=== PATIENT | male | born 1940 | race Caucasian/White ===

== ENCOUNTER → 2017-01-23 | Outpatient (CLI) | payer MEDICARE, BC ==
--- NOTE | 2017-01-23 13:36 | CARD ---
APPROVED REPORT EXAM: Two-dimensional and M-mode echocardiogram with Doppler and color Doppler. Other Information Quality : GoodHR: 76bpm Rhythm : NSR INDICATION Cardiomyopathy Surgery/Intervention COPD RISK FACTORS Obesity 2D DIMENSIONS RVDd2.3 (2.9-3.5cm)Left Atrium(2D)5.4 (1.6-4.0cm) IVSd1.4 (0.7-1.1cm)Aortic Root(2D)3.5 (2.0-3.7cm) LVDd5.5 (3.9-5.9cm)PWd0.1 (0.7-1.1cm) LVDs4.1 (2.5-4.0cm)FS (%) 24.9 % SV72.3 mlLVEF(%)48.7 (>50%) Aortic Valve AoV Peak Bryan.166.9cm/sAoV VTI37.9cm AO Peak GR.11.1mmHgLVOT Peak Bryan.118.8cm/s AO Mean GR.6mmHgAI P 1/2 [id number] Mitral Valve MV E Miiuvtlm28.9cm/sMV E Peak Gr.4mmHg MV DECEL [id number] A Ccpaekda13.4cm/s MV E Mean Gr.2mmHgE/A Ratio1.3 MV A [id number] Pulmonary Valve PV Peak Pehvpjai65.7cm/s Tricuspid Valve TR P. Mkaxbctv271lv/sTR Peak Gr.32mmHg Pulmonary Vein S1 Rjoxaaug61.2cm/sD2 Vydvookj86.3cm/s PVa [id number] LEFT VENTRICLE The left ventricle is normal size. There is mild concentric left ventricular hypertrophy. Left ventri johnny systolic function is borderline normal. The Ejection Fraction is 50%. Septal motion consistent wi th post-operative state. Transmitral Doppler flow pattern is Grade II-pseudonormal filling dynamics. No left ventricle thrombus noted on this study. RIGHT VENTRICLE The right ventricle is normal size. There is normal right ventricular wall thickness. The right ventr icular systolic function is normal. ATRIA The left atrium size is normal. The right atrium size is normal. The interatrial septum is intact wit h no evidence for an atrial septal defect or patent foramen ovale as noted on 2-D or Doppler imaging. AORTIC VALVE The aortic valve is mildly sclerotic. The aortic valve is trileaflet. Doppler and Color Flow revealed mild aortic regurgitation. There is no significant aortic valvular stenosis. MITRAL VALVE Mitral annular calcification is mild. The mitral valve leaflets are thickened. There is no evidence o f mitral valve prolapse. There is no mitral valve stenosis. Doppler and Color Flow revealed trace dm ral regurgitation. TRICUSPID VALVE Doppler and Color Flow revealed trace tricuspid regurgitation. The pulmonary artery systolic pressure is estimated at 35 mmHg. There is mild pulmonary hypertension. PULMONIC VALVE Doppler and Color Flow revealed trace pulmonic valvular regurgitation. There is no pulmonic valvular stenosis. GREAT VESSELS The aortic root is normal in size. The ascending aorta is normal in size. The pulmonary artery is nor mal. The IVC is normal in size and collapses >50% with inspiration. PERICARDIAL EFFUSION There is a small-moderate loculated posterior pericardial effusion without evidence of hemodynamic co mpromise. Critical Notification Critical Value: No <Conclusion> Left ventricle systolic function is borderline normal. The Ejection Fraction is 50%. Mild aortic regurgitation. Trace mitral regurgitation. Trace tricuspid regurgitation. The pulmonary artery systolic pressure is estimated at 35 mmHg. There is a small-moderate loculated posterior pericardial effusion.
--- NOTE | 2017-01-23 17:16 | RAD ---
APPROVED REPORT Patient Location : OUT-PATIENT Indications Lower Extremity Pain : Bilateral Lower Extremity Edema : Bilateral CARDIOMYOPATHY Deep System Deep Venous Thrombosis present : No Deep Venous Reflux present : No Findings Sylvester scale images of the saphenofemoral junctions and limited evaluation of the greater and lesser sa phenous veins do not reveal any evidence of thrombus. The right great saphenous vein measures approximately 3.6 mm and has a reflux time of approximately 1 .5 seconds. The right lesser saphenous vein measures approximately 2.9 m and does not show any eviden ce of reflux. The left great saphenous vein measures approximately 3.2 mm and has a reflux time approximately 1.5 s econds. The left lesser saphenous vein measures 4.1 mm and does not show any evidence of reflux. Critical Notification Critical Value: No <Conclusion> 1. Mild reflux in the bilateral greater saphenous veins.
--- NOTE | 2017-01-23 17:23 | RAD ---
APPROVED REPORT Bilateral Lower Extremity Venous Study for DVT Patient Location: OUT-PATIENT Indications Lower Extremity Pain: Bilateral Lower Extremity Edema: Bilateral CARDIOMYOPATHY Findings Sylvester scale images of the right and left deep venous system extending from the common femoral vein to the ankle level was performed. On the right the common femoral, superficial femoral and popliteal vessels are well visualized and ap pear to be fully compressible with normal spectral waveforms and color Doppler. The below-knee veins were not well visualized but appear to have spontaneous flow. On the left the common femoral vein and proximal superficial vein appear to be compressible and well visualized. The distal superficial femoral vein and popliteal veins were not adequately visualized bu t grossly appear to be compressible with normal spectral waveforms and color Doppler throughout the l eg including the below-knee vessels. Incidental finding of a right-sided Sams's cyst is noted measuring 4.8 x 2 x 3.67 cm. Critical Notification Critical Value: No <Conclusion> 1. No evidence of DVT in the bilateral lower extremities. 2. Itself finding of a right-sided Sams's cyst in the popliteal fossa measuring 4.8 x 2.0 x 3.6 cm
== END | disposition home or self-care (01) ==
LOC: US 06:58
PROVIDERS: ATTEND Internal Medicine Cardiovascular Disease
DX: I08.3 Combined rheumatic disorders of mitral, aortic and tricuspid valves (principal); I42.9 Cardiomyopathy, unspecified; M79.605 Pain in left leg; M79.604 Pain in right leg; R60.0 Localized edema
CPT/HCPCS: 93306; 93970

== ENCOUNTER → 2017-12-11 | Outpatient (CLI) | payer MEDICARE, BC | END | disposition home or self-care (01) | LOC: ECHO 12:53 | DX: Z01.818 Encounter for other preprocedural examination (principal); I35.1 Nonrheumatic aortic (valve) insufficiency; I51.7 Cardiomegaly | CPT/HCPCS: 93306 ==

== ENCOUNTER → 2018-01-27 | Outpatient (CLI) | payer MEDICARE, BC | END | disposition home or self-care (01) | LOC: KCIC MRI 10:15 | DX: M75.21 Bicipital tendinitis, right shoulder (principal); M19.011 Primary osteoarthritis, right shoulder; M25.411 Effusion, right shoulder | CPT/HCPCS: 73221 ==

== ENCOUNTER → 2018-03-18 | Outpatient (CLI) | payer MEDICARE, BC ==
[2018-03-18 14:42] LABS: ALBUMIN 3.6 g/dL (3.4-5.0); ALK PHOS 46 U/L (46-116); ALT (SGPT) 34 U/L (16-63); ANION GAP 10 (6-14); AST (SGOT) 22 U/L (15-37); BLOOD UREA NITROGEN 21 mg/dL (8-26); BUN/CREATININE RATIO 16 (6-20); CALCIUM 9.1 mg/dL (8.5-10.1); CARBON DIOXIDE 26 mmol/L (21-32); CHLORIDE 104 mmol/L (98-107); CREATININE 1.3 mg/dL (0.7-1.3); GFR 53.8; GLUCOSE 99 mg/dL (70-99); SODIUM 140 mmol/L (136-145); TOTAL BILIRUBIN 0.9 mg/dL (0.2-1.0); TOTAL PROTEIN 7.2 g/dL (6.4-8.2)
== END | disposition home or self-care (01) ==
LOC: LAB 14:04
DX: I87.2 Venous insufficiency (chronic) (peripheral) (principal)
CPT/HCPCS: 36415; 80053

== ENCOUNTER → 2018-04-30 | Outpatient (CLI) | payer MEDICARE, BC ==
[2018-04-30 11:04] LABS: ADD MAN DIFF? NO
[2018-04-30 11:13] LABS: BASO % 1 % (0-3); EOS # 0.1 x10^3/uL (0.0-0.7); EOS % 2 % (0-3); HEMATOCRIT 39.2 % (39.0-53.0); HEMOGLOBIN 13.4 g/dL (13.0-17.5); LYMPH # 1.2 x10^3/uL (1.0-4.8); LYMPH % 22 % (24-48); MEAN CORPUSCULAR HEMOGLOBIN 34 pg (25-35); MEAN CORPUSCULAR HGB CONC 34 g/dL (31-37); MEAN CORPUSCULAR VOLUME 99 fL (79-100); MONO # 0.6 x10^3/uL (0.0-1.1); MONO % 11 % (0-9); NEUT # 3.7 x10^3uL (1.8-7.7); NEUT % 65 % (31-73); PLATELET COUNT 126 x10^3/uL (140-400); RED BLOOD COUNT 3.94 x10^6/uL (4.30-5.70); RED CELL DISTRIBUTION WIDTH 13.9 % (11.5-14.5); WHITE BLOOD COUNT 5.7 x10^3/uL (4.0-11.0)
[2018-04-30 11:41] LABS: ALBUMIN 3.4 g/dL (3.4-5.0); ALBUMIN/GLOBULIN RATIO 0.9 (1.0-1.7); ALK PHOS 65 U/L (46-116); ALT (SGPT) 24 U/L (16-63); ANION GAP 11 (6-14); AST (SGOT) 20 U/L (15-37); BLOOD UREA NITROGEN 16 mg/dL (8-26); BUN/CREATININE RATIO 12 (6-20); CALCIUM 9.2 mg/dL (8.5-10.1); CARBON DIOXIDE 24 mmol/L (21-32); CHLORIDE 101 mmol/L (98-107); CREATININE 1.3 mg/dL (0.7-1.3); GFR 53.8; GLUCOSE 102 mg/dL (70-99); POTASSIUM 3.4 mmol/L (3.5-5.1); SODIUM 136 mmol/L (136-145); TOTAL BILIRUBIN 1.1 mg/dL (0.2-1.0); TOTAL PROTEIN 7.2 g/dL (6.4-8.2)
[2018-05-01 01:17] LABS: IMMUNOGLOBULIN G 1064 mg/dL (700-1600)
[2018-05-01 15:32] LABS: KAPPA LAMBDA RATIO 4.07 (0.26-1.65); LAMBDA FREE 24.8 mg/L (5.7-26.3)
[2018-05-02 18:14] LABS: IMMUNOGLOBULIN A 270 mg/dL (61-437); IMMUNOGLOBULIN G 1082 mg/dL (700-1600); IMMUNOGLOBULIN M 49 mg/dL (15-143)
== END | disposition home or self-care (01) ==
LOC: LAB 10:24
DX: D47.2 Monoclonal gammopathy (principal); I10 Essential (primary) hypertension; E78.5 Hyperlipidemia, unspecified; E03.9 Hypothyroidism, unspecified; J44.9 Chronic obstructive pulmonary disease, unspecified
CPT/HCPCS: 36415; 80053; 82784; 83520; 85025; 86334

== ENCOUNTER → 2018-04-30 | Outpatient (CLI) | payer MEDICARE, BC ==
[2018-04-30 11:35] LABS: ANION GAP 10 (6-14); BLOOD UREA NITROGEN 16 mg/dL (8-26); CALCIUM 9.1 mg/dL (8.5-10.1); CARBON DIOXIDE 26 mmol/L (21-32); CHLORIDE 101 mmol/L (98-107); CREATININE 1.3 mg/dL (0.7-1.3); GFR 53.8; GLUCOSE 101 mg/dL (70-99); POTASSIUM 3.5 mmol/L (3.5-5.1); SODIUM 137 mmol/L (136-145)
[2018-04-30 11:56] LABS: THYROID STIM HORMONE (TSH) 3.561 uIU/mL (0.358-3.74)
[2018-04-30 11:56] LABS: FREE T4 0.92 ng/dL (0.76-1.46)
[2018-05-02 19:17] LABS: ANA INTERP Negative (.)
== END | disposition home or self-care (01) ==
LOC: LAB 10:04
DX: R60.9 Edema, unspecified (principal); I11.0 Hypertensive heart disease with heart failure; I50.9 Heart failure, unspecified; E78.00 Pure hypercholesterolemia, unspecified; E03.9 Hypothyroidism, unspecified; J44.9 Chronic obstructive pulmonary disease, unspecified; E87.6 Hypokalemia; I48.0 Paroxysmal atrial fibrillation; I25.10 Atherosclerotic heart disease of native coronary artery without angina pectoris; Z95.1 Presence of aortocoronary bypass graft; Z85.51 Personal history of malignant neoplasm of bladder; Z90.49 Acquired absence of other specified parts of digestive tract; Z88.8 Allergy status to other drugs, medicaments and biological substances; Z68.39 Body mass index [BMI] 39.0-39.9, adult
CPT/HCPCS: 36415; 80048; 84439; 84443; 86038; 86431

== ENCOUNTER → 2018-05-08 | Outpatient (CLI) | payer MEDICARE, BC ==
[2018-04-10 11:00] VITALS: BP 103/64
[~2018-05-08] MED LIST: ACET1TAB30 PO; APIX5TAB PO; ASPI-630 PO; BUDE10.2 INH; CARV3.122 PO; CELE-20 PO; DICL100G28 TOP; DICL1PAT14 TOP; DOXY100T PO; FLUT16SP NS; FURO40TA4 PO; GUAI12003 PO; HYDR-2762 PO; HYDR28.311 RC; LEVO25TA4 PO; LISD30CA5 PO; LISI2.5T PO; METO25TA4 PO; MODA100T2 PO; POTA10TA12 PO; PRAM0.12 PO; PREG150C PO; SIMV40TA3 PO; TIOT18CA INH; TRAM50TA PO
--- NOTE | 2018-05-08 10:30 | CARD ---
MR#: [id number] Date of Study: 05/08/2018 Ordering Physician: MATEUSZ RIGGS, Referring Physician: MATEUSZ RIGGS, Tech: Natali Thoams CAYETANO APPROVED REPORT EXAM: LIMITED Two-dimensional echocardiogram Other Information Quality : Good INDICATION Re-Evaluate Pericardial Effusion LEFT VENTRICLE Grossly normal LV systolic function on limited images. Wall motion consistent with conduction defect. GREAT VESSELS Not evaluated. PERICARDIAL EFFUSION There is a trace circumferential pericardial effusion - No significant changes compared to echo dated 04/09/2018 Critical Notification Critical Value: No <Conclusion> Grossly normal LV systolic function on limited images. EF 55% Wall motion consistent with conduction defect. There is a trace circumferential pericardial effusion - No significant changes compared to echo dated 04/09/2018 Signed by : Matt Younger, Electronically Approved : 05/08/2018 10:29:06
--- NOTE | 2018-05-08 17:13 | RAD ---
PA and lateral chest radiograph. History: Pericardial effusion. Comparison: April 07, 2018. Findings: Cardiac silhouette remains enlarged, similar to previous study. Median sternotomy wires are present. Bilateral lung atwood appear clear without evidence of infiltrate, effusion, or pneumothorax. Pulmonary vascularity appears appropriate. Impression: 1. Continued enlargement of the cardiac silhouette. This would be compatible with provided history of pericardial effusion, although there may be component of cardiac chamber enlargement has well. 2. Current examination is without evidence of failure. Electronically signed by: Vijay Morales MD (05/08/2018 5:09 PM) [place] [id number]
== END | disposition home or self-care (01) ==
LOC: ECHO 08:34
PROVIDERS: ATTEND Internal Medicine Cardiovascular Disease
DX: I31.3 Pericardial effusion (noninflammatory) (principal)
CPT/HCPCS: 71046; 93308

== ENCOUNTER 2018-07-15 15:20 | Inpatient (IN) | payer MEDICARE, BC ==
[~2018-07-15] VITALS: Ht 175.3 cm; Wt 137.9 kg
--- NOTE | 2018-07-15 15:57 | PHYS DOC ---
Past Medical History Past Medical History: A-Fib, CHF, COPD, Diabetes-Type II, High Cholesterol, Hypertension, Hyperthyroid Past Surgical History: Appendectomy, Coronary Bypass Surgery Smoking: Quit Greater Than 1 Year Alcohol Use: None Drug Use: None Adult General Chief Complaint Chief Complaint: LOWER EXT PAIN HPI HPI Patient is a 77-year-old male who presents to the emergency department for evaluation. He has a history of CHF, as well as prior episodes of cellulitis. He states over the past few days, he has had increasing pedal edema, increasing pain particularly in his right leg. He developed increasing erythema, and has developed a few areas of skin breakdown, on his posterior and lateral right lower moss. He is noted to be febrile upon arrival as well. He denies any significant pain or discomfort proximal to his knee. He has had increasing dyspnea on exertion over the past several weeks, although he denies any chest pain. He denies any headache, fevers, or chills. There are no alleviating, or exacerbating factors to his symptoms. Review of Systems Review of Systems Constitutional: Denies lethargy or chills [] Eyes: Denies change in visual acuity, redness, or eye pain [] HENT: Denies nasal congestion or sore throat [] Respiratory: Denies cough or shortness of breath at rest currently, reports increasing dyspnea on exertion [] Cardiovascular: No additional information not addressed in HPI [] GI: Denies abdominal pain, nausea, vomiting, bloody stools or diarrhea [] : Denies dysuria or hematuria [] Musculoskeletal: Denies back pain or joint pain [] Integument: Denies rash or skin lesions except as noted in the history of present illness.[] Neurologic: Denies headache, focal weakness or sensory changes [] Endocrine: Denies polyuria or polydipsia [] All other systems were reviewed and found to be within normal limits, except as documented in this note. Current Medications Current Medications Current Medications Medications (Trade) Dose Ordered Sig/Hari Start Time Stop Time Status Last Admin Dose Admin Acetaminophen (Tylenol) 1,000 mg 1X ONCE 07/15/18 16:30 07/15/18 16:31 DC 07/15/18 16:57 1,000 MG Piperacillin Sod/ Tazobactam Sod 3.375 gm/Sodium Chloride 50 ml @ 100 mls/hr 1X ONCE 07/15/18 16:00 07/15/18 16:29 DC 07/15/18 16:54 100 MLS/HR Vancomycin HCl 250 ml @ 250 mls/hr 1X ONCE 07/15/18 16:00 07/15/18 16:59 Cancel Vancomycin HCl 2 gm/Sodium Chloride 500 ml @ 250 mls/hr 1X ONCE 07/15/18 16:30 07/15/18 18:29 Allergies Allergies Allergies Coded Allergies Type Severity Reaction Last Updated Verified fentanyl Allergy Intermediate 04/10/18 Yes oxymorphone Allergy Intermediate 04/10/18 Yes Physical Exam Physical Exam PHYSICAL EXAM: CONSTITUTIONAL: Well developed, well nourished HEAD: normocephalic, atraumatic EENT: PERRL, EOMI. Conjunctivae normal color, sclerae non-icteric; moist mucous membranes. NECK: Supple, non-tender; no meningismus. LUNGS: Mild crackles at the bases bilaterally. Breathing is mildly labored. CARDIAC: Irregularly irregular rhythm, no murmur CHEST: No deformity; non-tender ABDOMEN: The abdomen is soft, and non-tender, no masses or bruits. EXTREM: There is 2+ pitting pedal edema to the lower extremities bilaterally. Normal pedal pulses are palpable. There are chronic appearing skin changes, mild , with some brownish discoloration of the anterior shins. On the right lateral and posterior aspect of the right leg, lower leg/moss, there is more deeper appearing erythema, with warmth and some tenderness to palpation. There is some superficial breakdown of the outer dermal layers without active exudate present. There is no tenderness to palpation proximal to the knee. The remainder of extremities are unremarkable. SKIN: No rash; no diaphoresis NEURO: Alert; normal speech and cognition; CN's grossly intact; strength grossly intact without focal deficit. BACK: No CVA TTP. Current Patient Data Vital Signs Vital Signs Date Time Temp Pulse Resp B/P (MAP) Pulse Ox O2 Delivery O2 Flow Rate FiO2 07/15/18 15:30 100.5 100 23 115/57 (76) 97 Room Air 100.5 Lab Values Laboratory Tests Test 07/15/18 15:52 White Blood Count 6.0 x10^3/uL (4.0-11.0) Red Blood Count 2.88 x10^6/uL (4.30-5.70) L Hemoglobin 9.3 g/dL (13.0-17.5) L Hematocrit 26.9 % (39.0-53.0) L Mean Corpuscular Volume 94 fL (79-100) Mean Corpuscular Hemoglobin 33 pg (25-35) Mean Corpuscular Hemoglobin Concent 35 g/dL (31-37) Red Cell Distribution Width 15.8 % (11.5-14.5) H Platelet Count 144 x10^3/uL (140-400) Neutrophils (%) (Auto) 70 % (31-73) Lymphocytes (%) (Auto) 17 % (24-48) L Monocytes (%) (Auto) 10 % (0-9) H Eosinophils (%) (Auto) 1 % (0-3) Basophils (%) (Auto) 1 % (0-3) Neutrophils # (Auto) 4.2 x10^3uL (1.8-7.7) Lymphocytes # (Auto) 1.0 x10^3/uL (1.0-4.8) Monocytes # (Auto) 0.6 x10^3/uL (0.0-1.1) Eosinophils # (Auto) 0.1 x10^3/uL (0.0-0.7) Basophils # (Auto) 0.1 x10^3/uL (0.0-0.2) Sodium Level 139 mmol/L (136-145) Potassium Level 3.0 mmol/L (3.5-5.1) L Chloride Level 101 mmol/L (98-107) Carbon Dioxide Level 26 mmol/L (21-32) Anion Gap 12 (6-14) Blood Urea Nitrogen 37 mg/dL (8-26) H Creatinine 1.6 mg/dL (0.7-1.3) H Estimated GFR (Cockcroft-Gault) 42.3 BUN/Creatinine Ratio 23 (6-20) H Glucose Level 114 mg/dL (70-99) H Lactic Acid Level 2.0 mmol/L (0.4-2.0) Calcium Level 9.3 mg/dL (8.5-10.1) Total Bilirubin 0.7 mg/dL (0.2-1.0) Aspartate Amino Transferase (AST) 26 U/L (15-37) Alanine Aminotransferase (ALT) 22 U/L (16-63) Alkaline Phosphatase 42 U/L (46-116) L Troponin I Quantitative < 0.017 ng/mL (0.000-0.055) WC-Ubw-Q-Type Natriuretic Peptide 1163 pg/mL (0-449) H Total Protein 7.1 g/dL (6.4-8.2) Albumin 3.3 g/dL (3.4-5.0) L Albumin/Globulin Ratio 0.9 (1.0-1.7) L Laboratory Tests 07/15/18 15:52 Laboratory Tests 07/15/18 15:52 EKG EKG [Atrial Fibrillation at a rate of 84 beats for minute, leftward axis, right bundle-branch block, there are no acute ischemic ST/T changes. Specific changes are present.] Radiology/Procedures Radiology/Procedures [] Course & Med Decision Making Course & Med Decision Making Pertinent Labs and Imaging studies reviewed. (See chart for details) [5:30 PM: The patient's condition remained stable. Due to his significant edema , and likely poor microvascular circulation due to underlying diabetes, and history of recent cellulitis infection in that same leg a few months ago, the patient probably warrants more aggressive treatment, with intravenous and biotics. The hospitalist will admit the patient for further evaluation and treatment.] Dragon Disclaimer Dragon Disclaimer This electronic medical record was generated, in whole or in part, using a voice recognition dictation system. Departure Departure Impression: Primary Impression: Cellulitis Additional Impression: CHF (congestive heart failure) Disposition: 09 ADMITTED INPATIENT Admitting Physician: Anam Jackson Condition: STABLE Referrals: KONG WALTER MD (PCP) Problem Qualifiers JOSE ESPOSITO MD Jul 15, 2018 15:57
[2018-07-15] MEDS ORDERED: PIPERACILLIN/TAZOBACTAM 3.375 GM in IV NORMAL SALINE 50ML 50 ML IV ONE (16:00)
[2018-07-15] MEDS ORDERED: VANCOMYCIN 1GM IVPB FOR OMNI 250 ML IV ONE (16:00)
[2018-07-15 16:04] LABS: BASO # 0.1 x10^3/uL (0.0-0.2); BASO % 1 % (0-3); EOS # 0.1 x10^3/uL (0.0-0.7); EOS % 1 % (0-3); HEMATOCRIT 26.9 % (39.0-53.0); HEMOGLOBIN 9.3 g/dL (13.0-17.5); LYMPH % 17 % (24-48); MEAN CORPUSCULAR HEMOGLOBIN 33 pg (25-35); MEAN CORPUSCULAR HGB CONC 35 g/dL (31-37); MEAN CORPUSCULAR VOLUME 94 fL (79-100); MONO # 0.6 x10^3/uL (0.0-1.1); MONO % 10 % (0-9); NEUT # 4.2 x10^3uL (1.8-7.7); NEUT % 70 % (31-73); PLATELET COUNT 144 x10^3/uL (140-400); RED BLOOD COUNT 2.88 x10^6/uL (4.30-5.70); RED CELL DISTRIBUTION WIDTH 15.8 % (11.5-14.5)
[2018-07-15 16:15] LABS: CALCIUM 9.3 mg/dL (8.5-10.1); CREATININE 1.6 mg/dL (0.7-1.3); GFR 42.3
[2018-07-15 16:21] LABS: ALBUMIN 3.3 g/dL (3.4-5.0); ALBUMIN/GLOBULIN RATIO 0.9 (1.0-1.7); TOTAL BILIRUBIN 0.7 mg/dL (0.2-1.0); TOTAL PROTEIN 7.1 g/dL (6.4-8.2)
[2018-07-15] MEDS ORDERED: ACETAMINOPHEN 500 MG TABLET PO ONE (16:30)
[2018-07-15] MEDS ORDERED: VANCOMYCIN 2 GM in IV NORMAL SALINE 500ML BAG 500 ML IV ONE (16:30)
[2018-07-15] MEDS ORDERED: IV NORMAL SALINE 500ML BAG 500 ML IV ONE ×2 (18:00→18:30)
--- NOTE | 2018-07-15 19:39 | PDOC1 ---
History and Physical Date of Admission Date of Admission DATE: 07/15/18 TIME: 19:39 Identification/Chief Complaint Chief Complaint seen in ER presents to the emergency department for evaluation.HAS history of CHF, as well as prior episodes of cellulitis. states over the past few days, he has had increasing pedal edema, increasing pain particularly in his right leg developed increasing erythema, and has developed a few areas of skin breakdown, on his posterior and lateral right lower moss. noted to be febrile upon arrival as well. He denies any significant pain or discomfort proximal to his knee. has had increasing dyspnea on exertion over the past several weeks, although he denies any chest pain. Wounds have been draining Past Medical History Past Medical History Past Medical History: A-Fib, CHF, COPD, Diabetes-Type II, High Cholesterol, Hypertension, Hyperthyroid Past Surgical History: Appendectomy, Coronary Bypass Surgery Smoking: Quit Greater Than 1 Year IN 2003 Alcohol Use: None Drug Use: None FAMILY HX COPD, HTN Cardiovascular: CAD, CHF, HTN, Hyperlipidemia, Valve insufficiency, Other Pulmonary: COPD CENTRAL NERVOUS SYSTEM: Periperal neuropathy, Vertigo GI: Other Psych: No pertinent hx Musculoskeletal: low back pain, Osteoarthritis, Other Rheumatologic: No pertinent hx Infectious disease: No pertinent hx ENT: No pertinent hx Renal/: Benign prostatic enlarg., Other Endocrine: Diabetes, Hypothyroidism Past Surgical History Past Surgical History: CABG, Other Family History Family History: Hypertension, Stroke Family History: Parent Social History Smoke: Quit ALCOHOL: none Drugs: None Current Problem List Problem List Problems Medical Problems: (1) Cellulitis Status: Acute (2) CHF (congestive heart failure) Status: Acute Current Medications Current Medications Current Medications Vancomycin HCl 250 ml @ 250 mls/hr 1X ONCE IV ; Start 07/15/18 at 16:00; Stop 07/15/18 at 16:59; Status Cancel Piperacillin Sod/ Tazobactam Sod 3.375 gm/Sodium Chloride 50 ml @ 100 mls/hr 1X ONCE IV Last administered on 07/15/18at 16:54; Start 07/15/18 at 16:00; Stop 07/15/18 at 16:29; Status DC Vancomycin HCl 2 gm/Sodium Chloride 500 ml @ 250 mls/hr 1X ONCE IV Last administered on 07/15/18at 17:45; Start 07/15/18 at 16:30; Stop 07/15/18 at 18 :29; Status DC Acetaminophen (Tylenol) 1,000 mg 1X ONCE PO Last administered on 07/15/18at 16 :57; Start 07/15/18 at 16:30; Stop 07/15/18 at 16:31; Status DC Sodium Chloride 500 ml @ 500 mls/hr 1X ONCE IV Last administered on at 17:58; Start 07/15/18 at 18:30; Stop 07/15/18 at 19:29; Status DC Sodium Chloride 500 ml @ 500 mls/hr 1X ONCE IV ; Start 07/15/18 at 18:00; Stop 07/15/18 at 18:59; Status DC Active Scripts Active Doxycycline Hyclate 100 Mg Tablet 1 Tab PO BID Reported Metoprolol Tartrate 25 Mg Tablet 1 Tab PO BID Coricidin Hbp Tablet (Acetaminophen/Chlorpheniramine) 1 Each Tablet 1 Each PO HS Mucinex (Guaifenesin) 1,200 Mg Tbmp.12hr 1,200 Mg PO DAILY Aspirin 81 Mg Tab.chew 1 Tab PO DAILY Diclofenac Sodium 100 Gm Gel..gram. 1 Patch TOP QID Spiriva (Tiotropium [place]) 18 Mcg Cap.w.dev 1 Puff INH DAILY Tramadol Hcl 50 Mg Tablet 50 Mg PO PRN TID PRN Symbicort 160-4.5 Mcg Inhaler (Budesonide/Formoterol Fumarate) 10.2 Gm Hfa.aer.ad 2 Puff INH BID Fluticasone Propionate Nasal [place] (Fluticasone Propionate) 16 Gm [place].susp 2 Sprays NS BID Lyrica (Pregabalin) 150 Mg Capsule 150 Mg PO TID Pramipexole Dihydrochloride (Pramipexole Di-Hcl) 0.125 Mg Tablet 0.125 Mg PO HS Levothyroxine Sodium 25 Mcg Tablet 25 Mcg PO DAILY07 Modafinil 100 Mg Tablet 100 Mg PO BID Lisinopril 2.5 Mg Tablet 2.5 Mg PO DAILY Simvastatin 40 Mg Tablet 40 Mg PO HS Celecoxib 200 Mg Capsule 200 Mg PO DAILY Klor-Con 10 (Potassium Chloride) 10 Meq Tablet.er 20 Meq PO DAILY Proctosol-Hc (Hydrocortisone) 28.35 Gm Cream..g. 1 Negar RC BID Furosemide 40 Mg Tablet 40 Mg PO BID Flector (Diclofenac Epolamine) 1 Each Patch.td12 1.5 Patch TOP DAILY Eliquis (Apixaban) 5 Mg Tablet 5 Mg PO BID Vyvanse (Lisdexamfetamine Dimesylate) 30 Mg Capsule 30 Mg PO DAILY Hydrocodone-Apap 7.5-325 (Hydrocodone Bit/Acetaminophen) 1 Each Tablet 1 Tab PO BID66 Allergies Allergies: Coded Allergies: fentanyl (Verified Allergy, Intermediate, 04/10/18) patch oxymorphone (Verified Allergy, Intermediate, 04/10/18) Tolerates hydrocodone ROS Review of System Review of Systems Review of Systems Constitutional: Denies lethargy or chills [] Eyes: Denies change in visual acuity, redness, or eye pain [] HENT: Denies nasal congestion or sore throat [] Respiratory: Denies cough or shortness of breath at rest currently, reports increasing dyspnea on exertion [] Cardiovascular: No additional information not addressed in HPI [] GI: Denies abdominal pain, nausea, vomiting, bloody stools or diarrhea [] : Denies dysuria or hematuria [] Musculoskeletal: Denies back pain or joint pain [] Integument: Denies rash or skin lesions except as noted in the history of present illness.[] Neurologic: Denies headache, focal weakness or sensory changes [] Endocrine: Denies polyuria or polydipsia [] 14 pt systems were reviewed and found to be within normal limits, except as documented Skin: Yes Skin Lesion Changes Physical Exam Physical Exam Physical Exam PHYSICAL EXAM: CONSTITUTIONAL: Well developed, well nourished HEAD: normocephalic, atraumatic EENT: PERRL, EOMI. Conjunctivae normal color, sclerae non-icteric; moist mucous membranes. NECK: Supple, non-tender; no meningismus. LUNGS: Mild crackles at the bases bilaterally. Breathing is mildly labored. CARDIAC: Irregularly irregular rhythm, no murmur CHEST: No deformity; non-tender ABDOMEN: The abdomen is soft, and non-tender, no masses or bruits. EXTREM: There is 2+ pitting pedal edema to the lower extremities bilaterally. Normal pedal pulses are palpable. There are chronic appearing skin changes, mild , with some brownish discoloration of the anterior shins. On the right lateral and posterior aspect of the right leg, lower leg/moss, there is more deeper appearing erythema, with warmth and some tenderness to palpation. superficial breakdown of the outer dermal layers without active exudate present. There is no tenderness to palpation proximal to the knee. SKIN: No rash; no diaphoresis NEURO: Alert; normal speech and cognition; CN's grossly intact; strength grossly intact without focal deficit. General: Oriented X3, Cooperative Breasts: Not examined Extremities: No cyanosis Neuro: Normal speech Psych/Mental Status: Mental status NL Vitals Vitals Vital Signs Date Time Temp Pulse Resp B/P (MAP) Pulse Ox O2 Delivery O2 Flow Rate FiO2 07/15/18 19:00 88 22 99/57 (71) Room Air 07/15/18 18:30 96 07/15/18 15:30 100.5 100.5 Labs Labs Laboratory Tests Test 07/15/18 15:52 White Blood Count 6.0 x10^3/uL (4.0-11.0) Red Blood Count 2.88 x10^6/uL (4.30-5.70) Hemoglobin 9.3 g/dL (13.0-17.5) Hematocrit 26.9 % (39.0-53.0) Mean Corpuscular Volume 94 fL (79-100) Mean Corpuscular Hemoglobin 33 pg (25-35) Mean Corpuscular Hemoglobin Concent 35 g/dL (31-37) Red Cell Distribution Width 15.8 % (11.5-14.5) Platelet Count 144 x10^3/uL (140-400) Neutrophils (%) (Auto) 70 % (31-73) Lymphocytes (%) (Auto) 17 % (24-48) Monocytes (%) (Auto) 10 % (0-9) Eosinophils (%) (Auto) 1 % (0-3) Basophils (%) (Auto) 1 % (0-3) Neutrophils # (Auto) 4.2 x10^3uL (1.8-7.7) Lymphocytes # (Auto) 1.0 x10^3/uL (1.0-4.8) Monocytes # (Auto) 0.6 x10^3/uL (0.0-1.1) Eosinophils # (Auto) 0.1 x10^3/uL (0.0-0.7) Basophils # (Auto) 0.1 x10^3/uL (0.0-0.2) Sodium Level 139 mmol/L (136-145) Potassium Level 3.0 mmol/L (3.5-5.1) Chloride Level 101 mmol/L (98-107) Carbon Dioxide Level 26 mmol/L (21-32) Anion Gap 12 (6-14) Blood Urea Nitrogen 37 mg/dL (8-26) Creatinine 1.6 mg/dL (0.7-1.3) Estimated GFR (Cockcroft-Gault) 42.3 BUN/Creatinine Ratio 23 (6-20) Glucose Level 114 mg/dL (70-99) Lactic Acid Level 2.0 mmol/L (0.4-2.0) Calcium Level 9.3 mg/dL (8.5-10.1) Total Bilirubin 0.7 mg/dL (0.2-1.0) Aspartate Amino Transf (AST/SGOT) 26 U/L (15-37) Alanine Aminotransferase (ALT/SGPT) 22 U/L (16-63) Alkaline Phosphatase 42 U/L (46-116) Troponin I Quantitative < 0.017 ng/mL (0.000-0.055) YD-Ztk-W-Type Natriuretic Peptide 1163 pg/mL (0-449) Total Protein 7.1 g/dL (6.4-8.2) Albumin 3.3 g/dL (3.4-5.0) Albumin/Globulin Ratio 0.9 (1.0-1.7) Laboratory Tests Test 07/15/18 15:52 White Blood Count 6.0 x10^3/uL (4.0-11.0) Red Blood Count 2.88 x10^6/uL (4.30-5.70) Hemoglobin 9.3 g/dL (13.0-17.5) Hematocrit 26.9 % (39.0-53.0) Mean Corpuscular Volume 94 fL (79-100) Mean Corpuscular Hemoglobin 33 pg (25-35) Mean Corpuscular Hemoglobin Concent 35 g/dL (31-37) Red Cell Distribution Width 15.8 % (11.5-14.5) Platelet Count 144 x10^3/uL (140-400) Neutrophils (%) (Auto) 70 % (31-73) Lymphocytes (%) (Auto) 17 % (24-48) Monocytes (%) (Auto) 10 % (0-9) Eosinophils (%) (Auto) 1 % (0-3) Basophils (%) (Auto) 1 % (0-3) Neutrophils # (Auto) 4.2 x10^3uL (1.8-7.7) Lymphocytes # (Auto) 1.0 x10^3/uL (1.0-4.8) Monocytes # (Auto) 0.6 x10^3/uL (0.0-1.1) Eosinophils # (Auto) 0.1 x10^3/uL (0.0-0.7) Basophils # (Auto) 0.1 x10^3/uL (0.0-0.2) Sodium Level 139 mmol/L (136-145) Potassium Level 3.0 mmol/L (3.5-5.1) Chloride Level 101 mmol/L (98-107) Carbon Dioxide Level 26 mmol/L (21-32) Anion Gap 12 (6-14) Blood Urea Nitrogen 37 mg/dL (8-26) Creatinine 1.6 mg/dL (0.7-1.3) Estimated GFR (Cockcroft-Gault) 42.3 BUN/Creatinine Ratio 23 (6-20) Glucose Level 114 mg/dL (70-99) Lactic Acid Level 2.0 mmol/L (0.4-2.0) Calcium Level 9.3 mg/dL (8.5-10.1) Total Bilirubin 0.7 mg/dL (0.2-1.0) Aspartate Amino Transf (AST/SGOT) 26 U/L (15-37) Alanine Aminotransferase (ALT/SGPT) 22 U/L (16-63) Alkaline Phosphatase 42 U/L (46-116) Troponin I Quantitative < 0.017 ng/mL (0.000-0.055) EH-Wgo-D-Type Natriuretic Peptide 1163 pg/mL (0-449) Total Protein 7.1 g/dL (6.4-8.2) Albumin 3.3 g/dL (3.4-5.0) Albumin/Globulin Ratio 0.9 (1.0-1.7) VTE Prophylaxis Ordered VTE Prophylaxis Devices: Contraindicated VTE Pharmacological Prophylaxi: No Assessment/Plan Assessment/Plan Impression: Cellulitis legs CHF (congestive heart failure) morbid obesity ckd plan ADMITTED INPATIENT iv antibiotics, vanc, zosyn ID consult iv diuresis echo cardiology consult wound care nurse to see sq lovenox dvt prophylaxis hold nsiads frequent labs MANDEEP KINGSTON MD Jul 15, 2018 19:39
[2018-07-15] MEDS ORDERED: traMADol 50 MG TABLET PO PRN (20:00)
[2018-07-15] MEDS: CHLORPHENIRAMINE PO SCH (21:00)
[2018-07-15] MEDS: ACETAMINOPHEN PO SCH (21:00)
[2018-07-15] MEDS: METOPROLOL TART IMMED RELEASE 25 MG TABLET. PO SCH (21:00)
[2018-07-15] MEDS: FLUTICASONE 50MCG/NASAL SPRAY 16GM BOTTLE. NS SCH (21:52)
[2018-07-15] MEDS: APIXABAN 5 MG TABLET. PO SCH (21:55)
[2018-07-15] MEDS: SIMVASTATIN 40 MG TABLET. PO SCH (21:55)
[2018-07-15] MEDS: DICLOFENAC SODIUM 1% TOPICAL GEL 100GM TUBE. TP SCH (21:55)
[2018-07-15] MEDS: PRAMIPEXOLE 0.25 MG TABLET. PO SCH (21:56)
[2018-07-15] MEDS: PREGABALIN 75 MG CAPSULE PO SCH (21:56)
[2018-07-15 22:04] VITALS: BP 95/57
[2018-07-15] MEDS ORDERED: HYDROcodone/APAP 7.5/325MG 1 TAB TABLET PO ONE (22:30)
[2018-07-15] MEDS: HYDROCORTISONE 2.5% RECTAL CREAM 30GM TUBE. RC SCH (23:18)
[2018-07-16] MEDS: BUDESONIDE 0.5 MG/2 ML NEBU. NEB SCH ×2 (00:05→07:58)
[2018-07-16] MEDS: IPRATRPIUM/ALBUTEROL 0.5/2.5MG 3 ML NEBU. NEB SCH ×3 (00:05→12:00)
[2018-07-16] MEDS ORDERED: FURO-69 PO (02:24)
[2018-07-16] MEDS ORDERED: POTA10TA12 PO (02:24)
[2018-07-16] MEDS ORDERED: MECL25TA3 PO (02:24)
[2018-07-16] MEDS ORDERED: METO5TAB4 PO (02:24)
[2018-07-16 03:00] VITALS: BP 117/63
[2018-07-16 05:44] LABS: BASO % 1 % (0-3); EOS # 0.1 x10^3/uL (0.0-0.7); EOS % 2 % (0-3); HEMATOCRIT 25.6 % (39.0-53.0); HEMOGLOBIN 8.6 g/dL (13.0-17.5); LYMPH # 0.8 x10^3/uL (1.0-4.8); LYMPH % 19 % (24-48); MEAN CORPUSCULAR HEMOGLOBIN 32 pg (25-35); MEAN CORPUSCULAR HGB CONC 34 g/dL (31-37); MEAN CORPUSCULAR VOLUME 94 fL (79-100); MONO # 0.4 x10^3/uL (0.0-1.1); MONO % 10 % (0-9); NEUT # 2.9 x10^3uL (1.8-7.7); NEUT % 70 % (31-73); PLATELET COUNT 117 x10^3/uL (140-400); RED BLOOD COUNT 2.72 x10^6/uL (4.30-5.70); RED CELL DISTRIBUTION WIDTH 15.6 % (11.5-14.5); WHITE BLOOD COUNT 4.1 x10^3/uL (4.0-11.0)
[2018-07-16 05:57] LABS: ALBUMIN 3.1 g/dL (3.4-5.0); CALCIUM 8.5 mg/dL (8.5-10.1); CREATININE 1.5 mg/dL (0.7-1.3); GFR 45.6; PHOSPHORUS 3.3 mg/dL (2.6-4.7)
--- NOTE | 2018-07-16 06:20 | EKG ---
[facility] [address] [place] [address] Test Date: 2018-07-15 Test Time: 16:12:22 Pat Name: GRAYSON PUTNAM Department: Room: 563 1 Gender: M Reel Operator: : [id number] Requested By: JOSE ESPOSITO Order Number: [id number] Reading MD: Speedy George Measurements Intervals [place] Rate: 84 P: AR: QRS: -10 QRSD: 132 T: 153 QT: 358 QTc: 426 Interpretive Statements ATRIAL FIBRILLATION LEFTWARD AXIS NON SPECIFIC INTRAVENTRICULAR BLOCK QRS(T) CONTOUR ABNORMALITY CONSISTENT WITH ANTEROSEPTAL INFARCT AGE UNDETERMINED ABNORMAL ECG Electronically Signed On 07-17-2018 11:23:59 CDT by Speedy George
[2018-07-16 06:25] LABS: POTASSIUM 2.7 mmol/L (3.5-5.1)
[2018-07-16] MEDS: LEVOTHYROXINE 25 MCG TABLET. PO SCH (06:29)
[2018-07-16] MEDS: HYDROcodone/APAP 7.5/325MG 1 TAB TABLET PO SCH ×2 (06:30→17:49)
[2018-07-16] MEDS ORDERED: POTASSIUM CHLORIDE 20 MEQ TABLET.ER. PO ONE ×3 (06:45→09:00)
[2018-07-16 07:00] VITALS: BP 94/55
--- NOTE | 2018-07-16 07:59 | RAD ---
Renal ultrasound, 07/15/2018: HISTORY: Acute renal failure The right kidney measures 11.1 cm in length while the left kidney measures 13.8 cm. There is no evidence of hydronephrosis or a renal mass. The renal parenchymal echogenicity is within normal limits. Limited views of urinary bladder show no abnormality. IMPRESSION: 1. The right kidney is smaller than the left. 2. No evidence of renal obstruction. Electronically signed by: Malvin Mccarthy MD (07/16/2018 7:56 AM) [facility]
[2018-07-16] MEDS: ASPIRIN CHEWABLE 81 MG TABLET. PO SCH (08:19)
--- NOTE | 2018-07-16 08:19 | RAD ---
PORTABLE CHEST 1V Clinical Indication: DYSPNEA UPON EXERTION. LOWER EXTREMITY SWELLING. Hx HTN, COPD, CHF. Comparison: Two-view chest May 08, 2018. Findings: Stable median sternotomy wires and changes of CABG. Cardiomegaly is stable. Pulmonary vasculature upper limits of normal. There is left basilar airspace disease with partial obscuration of the hemidiaphragm. There is no pneumothorax. No pleural effusion is appreciated. No acute bone abnormality. IMPRESSION: 1. Mild left basilar airspace disease. 2. Stable cardiomegaly. Electronically signed by: Jose Lockhart MD (07/16/2018 8:16 AM) [id number]
[2018-07-16] MEDS: APIXABAN 5 MG TABLET. PO SCH ×2 (08:22→21:16)
[2018-07-16] MEDS: PREGABALIN 75 MG CAPSULE PO SCH ×3 (08:22→21:16)
[2018-07-16] MEDS: POTASSIUM CHLORIDE 20 MEQ TABLET.ER. PO SCH (08:23)
[2018-07-16] MEDS: FLUTICASONE 50MCG/NASAL SPRAY 16GM BOTTLE. NS SCH ×2 (08:24→21:00)
[2018-07-16] MEDS: HYDROCORTISONE 2.5% RECTAL CREAM 30GM TUBE. RC SCH ×2 (08:24→21:17)
[2018-07-16] MEDS: METOPROLOL TART IMMED RELEASE 25 MG TABLET. PO SCH ×2 (08:25→21:14)
[2018-07-16] MEDS: LISDEXAMFETAMINE DIMESYLATE 30 MG PO SCH (08:26)
[2018-07-16] MEDS: LISINOPRIL 5 MG TABLET. PO SCH (08:26)
[2018-07-16] MEDS: DICLOFENAC SODIUM 1% TOPICAL GEL 100GM TUBE. TP SCH ×4 (08:27→21:17)
[2018-07-16] MEDS ORDERED: ONDANSETRON PF 4 MG/2 ML VIAL. IV PRN (08:45)
[2018-07-16] MEDS ORDERED: ACETAMINOPHEN/CODEINE 300/30MG TABLET. PO PRN (08:45)
[2018-07-16] MEDS ORDERED: ONDANSETRON ODT 4 MG TAB.RAPDIS. PO PRN (08:45)
[2018-07-16] MEDS ORDERED: DICLOFENAC EPOLAMINE TOP SCH (09:00)
[2018-07-16] MEDS ORDERED: CELECOXIB 200 MG PO SCH (09:00)
--- NOTE | 2018-07-16 10:37 | PDOC ---
Infectious Disease Note Vital Sign Vital Signs Vital Signs Date Time Temp Pulse Resp B/P (MAP) Pulse Ox O2 Delivery O2 Flow Rate FiO2 07/16/18 08:26 94 94/55 07/16/18 08:26 Room Air 07/16/18 07:00 97.5 16 95 97.5 Labs Lab Laboratory Tests Test 07/15/18 15:52 07/15/18 20:44 07/16/18 04:30 07/16/18 07:25 White Blood Count 6.0 x10^3/uL (4.0-11.0) 4.1 x10^3/uL (4.0-11.0) Red Blood Count 2.88 x10^6/uL (4.30-5.70) 2.72 x10^6/uL (4.30-5.70) Hemoglobin 9.3 g/dL (13.0-17.5) 8.6 g/dL (13.0-17.5) Hematocrit 26.9 % (39.0-53.0) 25.6 % (39.0-53.0) Mean Corpuscular Volume 94 fL (79-100) 94 fL (79-100) Mean Corpuscular Hemoglobin 33 pg (25-35) 32 pg (25-35) Mean Corpuscular Hemoglobin Concent 35 g/dL (31-37) 34 g/dL (31-37) Red Cell Distribution Width 15.8 % (11.5-14.5) 15.6 % (11.5-14.5) Platelet Count 144 x10^3/uL (140-400) 117 x10^3/uL (140-400) Neutrophils (%) (Auto) 70 % (31-73) 70 % (31-73) Lymphocytes (%) (Auto) 17 % (24-48) 19 % (24-48) Monocytes (%) (Auto) 10 % (0-9) 10 % (0-9) Eosinophils (%) (Auto) 1 % (0-3) 2 % (0-3) Basophils (%) (Auto) 1 % (0-3) 1 % (0-3) Neutrophils # (Auto) 4.2 x10^3uL (1.8-7.7) 2.9 x10^3uL (1.8-7.7) Lymphocytes # (Auto) 1.0 x10^3/uL (1.0-4.8) 0.8 x10^3/uL (1.0-4.8) Monocytes # (Auto) 0.6 x10^3/uL (0.0-1.1) 0.4 x10^3/uL (0.0-1.1) Eosinophils # (Auto) 0.1 x10^3/uL (0.0-0.7) 0.1 x10^3/uL (0.0-0.7) Basophils # (Auto) 0.1 x10^3/uL (0.0-0.2) 0.0 x10^3/uL (0.0-0.2) Sodium Level 139 mmol/L (136-145) 142 mmol/L (136-145) Potassium Level 3.0 mmol/L (3.5-5.1) 2.7 mmol/L (3.5-5.1) Chloride Level 101 mmol/L (98-107) 103 mmol/L (98-107) Carbon Dioxide Level 26 mmol/L (21-32) 27 mmol/L (21-32) Anion Gap 12 (6-14) 12 (6-14) Blood Urea Nitrogen 37 mg/dL (8-26) 33 mg/dL (8-26) Creatinine 1.6 mg/dL (0.7-1.3) 1.5 mg/dL (0.7-1.3) Estimated GFR (Cockcroft-Gault) 42.3 45.6 BUN/Creatinine Ratio 23 (6-20) Glucose Level 114 mg/dL (70-99) 110 mg/dL (70-99) Lactic Acid Level 2.0 mmol/L (0.4-2.0) Calcium Level 9.3 mg/dL (8.5-10.1) 8.5 mg/dL (8.5-10.1) Total Bilirubin 0.7 mg/dL (0.2-1.0) Aspartate Amino Transf (AST/SGOT) 26 U/L (15-37) Alanine Aminotransferase (ALT/SGPT) 22 U/L (16-63) Alkaline Phosphatase 42 U/L (46-116) Troponin I Quantitative < 0.017 ng/mL (0.000-0.055) WI-Bff-E-Type Natriuretic Peptide 1163 pg/mL (0-449) Total Protein 7.1 g/dL (6.4-8.2) Albumin 3.3 g/dL (3.4-5.0) 3.1 g/dL (3.4-5.0) Albumin/Globulin Ratio 0.9 (1.0-1.7) Glucose (Fingerstick) 109 mg/dL (70-99) 108 mg/dL (70-99) Erythrocyte Sedimentation Rate 25 (0-15) Phosphorus Level 3.3 mg/dL (2.6-4.7) Objective Assessment Rt leg cellulitis Rt leg chronic stasis dermatitis Leg venous insufficiency Fever CHF Obesity Renal insufficiency Plan Plan of Care cefazolin leg elevation supportive care ELYSSA GILLIS MD Jul 16, 2018 10:37
[2018-07-16 11:00] VITALS: BP 103/57
--- NOTE | 2018-07-16 11:05 | PDOC ---
PROGRESS NOTES Chief Complaint Chief Complaint Cellulitis legs Acute on chronic lymphedema CHF (congestive heart failure) HX a fib and VAnve insufficiencies morbid obesity BMI 45 ckd History of Present Illness History of Present Illness NO increase in SOA but he does claim that S OA with leg swelling were the sxs that brought him in Leg rash looks better. The edema seems better he says. He cannot do to 30 mmHg of CAMPBELL hose. He lives alone at home and does his CAMPBELL hose by himself He says prior to admission his legs were weeping. No skin break adjust but there is some redness 2 spots on the right posterior/calf area Labs look okay aside from creatinine of 1.5 which is known to him. Potassium 2.7 and did get KCl replacements this morning. White count 4.1 with no fevers. He does have a lot of comorbidities namely history of A. fib, valve problems, relative hypotension. Last admission was few mos ago He does maintain compliance of Lasix and claims that he was just increased to 80 once a day by his lpn Dr. Hernandez PLAN: Diurese per cards Add OT for lymphedema Add PT/OT monitor lites especially potassium and creatinine while IV diuresis Replace K accordingly Follow cardiology/pulmonary recommendations Supportive care Full code Vitals Vitals Vital Signs Date Time Temp Pulse Resp B/P (MAP) Pulse Ox O2 Delivery O2 Flow Rate FiO2 07/16/18 08:26 94 94/55 07/16/18 08:26 Room Air 07/16/18 07:00 97.5 16 95 97.5 Physical Exam General: Oriented X3, Cooperative Heart: Regular rate, Normal S1, Normal S2 Lungs: Crackles, Other (decrease breath sounds on the basis) Abdomen: Normal bowel sounds, Soft Extremities: No cyanosis Skin: Other (lower extremity edema, tightness, +2 with 2 red spots, no fluctuance, no tenderness or at least minimal. No skin breakdown) Labs LABS Laboratory Tests Test 07/15/18 15:52 07/15/18 20:44 07/16/18 04:30 07/16/18 07:25 White Blood Count 6.0 x10^3/uL (4.0-11.0) 4.1 x10^3/uL (4.0-11.0) Red Blood Count 2.88 x10^6/uL (4.30-5.70) 2.72 x10^6/uL (4.30-5.70) Hemoglobin 9.3 g/dL (13.0-17.5) 8.6 g/dL (13.0-17.5) Hematocrit 26.9 % (39.0-53.0) 25.6 % (39.0-53.0) Mean Corpuscular Volume 94 fL (79-100) 94 fL (79-100) Mean Corpuscular Hemoglobin 33 pg (25-35) 32 pg (25-35) Mean Corpuscular Hemoglobin Concent 35 g/dL (31-37) 34 g/dL (31-37) Red Cell Distribution Width 15.8 % (11.5-14.5) 15.6 % (11.5-14.5) Platelet Count 144 x10^3/uL (140-400) 117 x10^3/uL (140-400) Neutrophils (%) (Auto) 70 % (31-73) 70 % (31-73) Lymphocytes (%) (Auto) 17 % (24-48) 19 % (24-48) Monocytes (%) (Auto) 10 % (0-9) 10 % (0-9) Eosinophils (%) (Auto) 1 % (0-3) 2 % (0-3) Basophils (%) (Auto) 1 % (0-3) 1 % (0-3) Neutrophils # (Auto) 4.2 x10^3uL (1.8-7.7) 2.9 x10^3uL (1.8-7.7) Lymphocytes # (Auto) 1.0 x10^3/uL (1.0-4.8) 0.8 x10^3/uL (1.0-4.8) Monocytes # (Auto) 0.6 x10^3/uL (0.0-1.1) 0.4 x10^3/uL (0.0-1.1) Eosinophils # (Auto) 0.1 x10^3/uL (0.0-0.7) 0.1 x10^3/uL (0.0-0.7) Basophils # (Auto) 0.1 x10^3/uL (0.0-0.2) 0.0 x10^3/uL (0.0-0.2) Sodium Level 139 mmol/L (136-145) 142 mmol/L (136-145) Potassium Level 3.0 mmol/L (3.5-5.1) 2.7 mmol/L (3.5-5.1) Chloride Level 101 mmol/L (98-107) 103 mmol/L (98-107) Carbon Dioxide Level 26 mmol/L (21-32) 27 mmol/L (21-32) Anion Gap 12 (6-14) 12 (6-14) Blood Urea Nitrogen 37 mg/dL (8-26) 33 mg/dL (8-26) Creatinine 1.6 mg/dL (0.7-1.3) 1.5 mg/dL (0.7-1.3) Estimated GFR (Cockcroft-Gault) 42.3 45.6 BUN/Creatinine Ratio 23 (6-20) Glucose Level 114 mg/dL (70-99) 110 mg/dL (70-99) Lactic Acid Level 2.0 mmol/L (0.4-2.0) Calcium Level 9.3 mg/dL (8.5-10.1) 8.5 mg/dL (8.5-10.1) Total Bilirubin 0.7 mg/dL (0.2-1.0) Aspartate Amino Transf (AST/SGOT) 26 U/L (15-37) Alanine Aminotransferase (ALT/SGPT) 22 U/L (16-63) Alkaline Phosphatase 42 U/L (46-116) Troponin I Quantitative < 0.017 ng/mL (0.000-0.055) ZH-Jeo-T-Type Natriuretic Peptide 1163 pg/mL (0-449) Total Protein 7.1 g/dL (6.4-8.2) Albumin 3.3 g/dL (3.4-5.0) 3.1 g/dL (3.4-5.0) Albumin/Globulin Ratio 0.9 (1.0-1.7) Glucose (Fingerstick) 109 mg/dL (70-99) 108 mg/dL (70-99) Erythrocyte Sedimentation Rate 25 (0-15) Phosphorus Level 3.3 mg/dL (2.6-4.7) Assessment and Plan Assessmemt and Plan Problems Medical Problems: (1) Cellulitis Status: Acute (2) CHF (congestive heart failure) Status: Acute Comment Review of Relevant I have reviewed the following items benedict (where applicable) has been applied. Labs Laboratory Tests Test 07/15/18 15:52 07/15/18 20:44 07/16/18 04:30 07/16/18 07:25 White Blood Count 6.0 x10^3/uL (4.0-11.0) 4.1 x10^3/uL (4.0-11.0) Red Blood Count 2.88 x10^6/uL (4.30-5.70) 2.72 x10^6/uL (4.30-5.70) Hemoglobin 9.3 g/dL (13.0-17.5) 8.6 g/dL (13.0-17.5) Hematocrit 26.9 % (39.0-53.0) 25.6 % (39.0-53.0) Mean Corpuscular Volume 94 fL (79-100) 94 fL (79-100) Mean Corpuscular Hemoglobin 33 pg (25-35) 32 pg (25-35) Mean Corpuscular Hemoglobin Concent 35 g/dL (31-37) 34 g/dL (31-37) Red Cell Distribution Width 15.8 % (11.5-14.5) 15.6 % (11.5-14.5) Platelet Count 144 x10^3/uL (140-400) 117 x10^3/uL (140-400) Neutrophils (%) (Auto) 70 % (31-73) 70 % (31-73) Lymphocytes (%) (Auto) 17 % (24-48) 19 % (24-48) Monocytes (%) (Auto) 10 % (0-9) 10 % (0-9) Eosinophils (%) (Auto) 1 % (0-3) 2 % (0-3) Basophils (%) (Auto) 1 % (0-3) 1 % (0-3) Neutrophils # (Auto) 4.2 x10^3uL (1.8-7.7) 2.9 x10^3uL (1.8-7.7) Lymphocytes # (Auto) 1.0 x10^3/uL (1.0-4.8) 0.8 x10^3/uL (1.0-4.8) Monocytes # (Auto) 0.6 x10^3/uL (0.0-1.1) 0.4 x10^3/uL (0.0-1.1) Eosinophils # (Auto) 0.1 x10^3/uL (0.0-0.7) 0.1 x10^3/uL (0.0-0.7) Basophils # (Auto) 0.1 x10^3/uL (0.0-0.2) 0.0 x10^3/uL (0.0-0.2) Sodium Level 139 mmol/L (136-145) 142 mmol/L (136-145) Potassium Level 3.0 mmol/L (3.5-5.1) 2.7 mmol/L (3.5-5.1) Chloride Level 101 mmol/L (98-107) 103 mmol/L (98-107) Carbon Dioxide Level 26 mmol/L (21-32) 27 mmol/L (21-32) Anion Gap 12 (6-14) 12 (6-14) Blood Urea Nitrogen 37 mg/dL (8-26) 33 mg/dL (8-26) Creatinine 1.6 mg/dL (0.7-1.3) 1.5 mg/dL (0.7-1.3) Estimated GFR (Cockcroft-Gault) 42.3 45.6 BUN/Creatinine Ratio 23 (6-20) Glucose Level 114 mg/dL (70-99) 110 mg/dL (70-99) Lactic Acid Level 2.0 mmol/L (0.4-2.0) Calcium Level 9.3 mg/dL (8.5-10.1) 8.5 mg/dL (8.5-10.1) Total Bilirubin 0.7 mg/dL (0.2-1.0) Aspartate Amino Transf (AST/SGOT) 26 U/L (15-37) Alanine Aminotransferase (ALT/SGPT) 22 U/L (16-63) Alkaline Phosphatase 42 U/L (46-116) Troponin I Quantitative < 0.017 ng/mL (0.000-0.055) RC-Kei-U-Type Natriuretic Peptide 1163 pg/mL (0-449) Total Protein 7.1 g/dL (6.4-8.2) Albumin 3.3 g/dL (3.4-5.0) 3.1 g/dL (3.4-5.0) Albumin/Globulin Ratio 0.9 (1.0-1.7) Glucose (Fingerstick) 109 mg/dL (70-99) 108 mg/dL (70-99) Erythrocyte Sedimentation Rate 25 (0-15) Phosphorus Level 3.3 mg/dL (2.6-4.7) Laboratory Tests Test 07/15/18 15:52 07/15/18 20:44 07/16/18 04:30 07/16/18 07:25 White Blood Count 6.0 x10^3/uL (4.0-11.0) 4.1 x10^3/uL (4.0-11.0) Red Blood Count 2.88 x10^6/uL (4.30-5.70) 2.72 x10^6/uL (4.30-5.70) Hemoglobin 9.3 g/dL (13.0-17.5) 8.6 g/dL (13.0-17.5) Hematocrit 26.9 % (39.0-53.0) 25.6 % (39.0-53.0) Mean Corpuscular Volume 94 fL (79-100) 94 fL (79-100) Mean Corpuscular Hemoglobin 33 pg (25-35) 32 pg (25-35) Mean Corpuscular Hemoglobin Concent 35 g/dL (31-37) 34 g/dL (31-37) Red Cell Distribution Width 15.8 % (11.5-14.5) 15.6 % (11.5-14.5) Platelet Count 144 x10^3/uL (140-400) 117 x10^3/uL (140-400) Neutrophils (%) (Auto) 70 % (31-73) 70 % (31-73) Lymphocytes (%) (Auto) 17 % (24-48) 19 % (24-48) Monocytes (%) (Auto) 10 % (0-9) 10 % (0-9) Eosinophils (%) (Auto) 1 % (0-3) 2 % (0-3) Basophils (%) (Auto) 1 % (0-3) 1 % (0-3) Neutrophils # (Auto) 4.2 x10^3uL (1.8-7.7) 2.9 x10^3uL (1.8-7.7) Lymphocytes # (Auto) 1.0 x10^3/uL (1.0-4.8) 0.8 x10^3/uL (1.0-4.8) Monocytes # (Auto) 0.6 x10^3/uL (0.0-1.1) 0.4 x10^3/uL (0.0-1.1) Eosinophils # (Auto) 0.1 x10^3/uL (0.0-0.7) 0.1 x10^3/uL (0.0-0.7) Basophils # (Auto) 0.1 x10^3/uL (0.0-0.2) 0.0 x10^3/uL (0.0-0.2) Sodium Level 139 mmol/L (136-145) 142 mmol/L (136-145) Potassium Level 3.0 mmol/L (3.5-5.1) 2.7 mmol/L (3.5-5.1) Chloride Level 101 mmol/L (98-107) 103 mmol/L (98-107) Carbon Dioxide Level 26 mmol/L (21-32) 27 mmol/L (21-32) Anion Gap 12 (6-14) 12 (6-14) Blood Urea Nitrogen 37 mg/dL (8-26) 33 mg/dL (8-26) Creatinine 1.6 mg/dL (0.7-1.3) 1.5 mg/dL (0.7-1.3) Estimated GFR (Cockcroft-Gault) 42.3 45.6 BUN/Creatinine Ratio 23 (6-20) Glucose Level 114 mg/dL (70-99) 110 mg/dL (70-99) Lactic Acid Level 2.0 mmol/L (0.4-2.0) Calcium Level 9.3 mg/dL (8.5-10.1) 8.5 mg/dL (8.5-10.1) Total Bilirubin 0.7 mg/dL (0.2-1.0) Aspartate Amino Transf (AST/SGOT) 26 U/L (15-37) Alanine Aminotransferase (ALT/SGPT) 22 U/L (16-63) Alkaline Phosphatase 42 U/L (46-116) Troponin I Quantitative < 0.017 ng/mL (0.000-0.055) FM-Ohu-Z-Type Natriuretic Peptide 1163 pg/mL (0-449) Total Protein 7.1 g/dL (6.4-8.2) Albumin 3.3 g/dL (3.4-5.0) 3.1 g/dL (3.4-5.0) Albumin/Globulin Ratio 0.9 (1.0-1.7) Glucose (Fingerstick) 109 mg/dL (70-99) 108 mg/dL (70-99) Erythrocyte Sedimentation Rate 25 (0-15) Phosphorus Level 3.3 mg/dL (2.6-4.7) Medications Current Medications Vancomycin HCl 250 ml @ 250 mls/hr 1X ONCE IV ; Start 07/15/18 at 16:00; Stop 07/15/18 at 16:59; Status Cancel Piperacillin Sod/ Tazobactam Sod 3.375 gm/Sodium Chloride 50 ml @ 100 mls/hr 1X ONCE IV Last administered on 07/15/18at 16:54; Start 07/15/18 at 16:00; Stop 07/15/18 at 16:29; Status DC Vancomycin HCl 2 gm/Sodium Chloride 500 ml @ 250 mls/hr 1X ONCE IV Last administered on 07/15/18at 17:45; Start 07/15/18 at 16:30; Stop 07/15/18 at 18 :29; Status DC Acetaminophen (Tylenol) 1,000 mg 1X ONCE PO Last administered on 07/15/18at 16 :57; Start 07/15/18 at 16:30; Stop 07/15/18 at 16:31; Status DC Sodium Chloride 500 ml @ 500 mls/hr 1X ONCE IV Last administered on at 17:58; Start 07/15/18 at 18:30; Stop 07/15/18 at 19:29; Status DC Sodium Chloride 500 ml @ 500 mls/hr 1X ONCE IV ; Start 07/15/18 at 18:00; Stop 07/15/18 at 18:59; Status DC Apixaban (Eliquis) 5 mg BID PO Last administered on 07/16/18at 08:22; Start at 21:00 Aspirin (Children'S Aspirin) 81 mg DAILY PO Last administered on 07/16/18 08: 19; Start 07/16/18 at 09:00 Diclofenac Sodium (Voltaren) 1 negar QID TP Last administered on 07/16/18 08:27 ; Start 07/15/18 at 21:00 Fluticasone Propionate (Flonase) 2 spray BID NS Last administered on 08:24; Start 07/15/18 at 21:00 Acetaminophen/ Hydrocodone Bitart (Lortab 7.5/325) 1 tab [id number] PO Last administered on 07/16/18 06:30; Start 07/16/18 at 06:00 Hydrocortisone (Proctosol-Hc) 1 negar BID RC Last administered on 07/16/18 08: 24; Start 07/15/18 at 21:00 Metoprolol Tartrate (Lopressor) 25 mg BID PO ; Start 07/15/18 at 21:00 Potassium Chloride (Klor-Con) 20 meq DAILY PO Last administered on 07/16/18 08:23; Start 07/16/18 at 09:00 Tramadol HCl (Ultram) 50 mg PRN TID PRN PO SEVERE PAIN; Start 07/15/18 at 20: 00 Non-Formulary Medication (Acetaminophen/ Chlorpheniramine (Coricidin Hbp Tablet) ) 1 each HS PO ; Start 07/15/18 at 21:00; Status UNV Budesonide (Pulmicort) 0.5 mg RTBID NEB Last administered on 07/16/18at 00:05; Start 07/15/18 at 20:30 Non-Formulary Medication (Celecoxib ) 200 mg DAILY PO ; Start 07/16/18 at 09:00 ; Stop 07/16/18 at 09:00; Status DC Non-Formulary Medication (Diclofenac Epolamine (Flector)) 1.5 patch DAILY TOP ; Start 07/16/18 at 09:00; Status UNV Guaifenesin (Mucinex) 1,200 mg DAILY PO Last administered on 07/16/18at 08:19; Start 07/16/18 at 09:00 Levothyroxine Sodium (Synthroid) 25 mcg DAILY06 PO Last administered on at 06:29; Start 07/16/18 at 06:00 Non-Formulary Medication (Lisdexamfetamine Dimesylate (Vyvanse)) 30 mg DAILY PO ; Start 07/16/18 at 09:00; Status UNV Lisinopril (Prinivil) 2.5 mg DAILY PO ; Start 07/16/18 at 09:00 Pramipexole Dihydrochloride (miraPEX) 0.125 mg QHS PO Last administered on at 21:56; Start 07/15/18 at 21:00 Pregabalin (Lyrica) 150 mg TID PO Last administered on 07/16/18at 08:22; Start 07/15/18 at 21:00 Simvastatin (Zocor) 40 mg QHS PO Last administered on 07/15/18at 21:55; Start 07/15/18 at 21:00 Albuterol/ Ipratropium (Duoneb) 3 ml RTQID NEB Last administered on 07/16/18at 00:05; Start 07/15/18 at 20:00 Acetaminophen/ Hydrocodone Bitart (Lortab 7.5/325) 1 tab 1X ONCE PO Last administered on 07/15/18at 22:53; Start 07/15/18 at 22:30; Stop 07/15/18 at 22 :31; Status DC Potassium Chloride (Klor-Con) 40 meq 1X ONCE PO Last administered on at 07:20; Start 07/16/18 at 06:45; Stop 07/16/18 at 06:58; Status DC Acetaminophen (Tylenol) 500 mg PRN Q6HRS PRN PO MILD PAIN / TEMP; Start at 08:45 Acetaminophen/ Codeine Phosphate (Tylenol #3) 1 tab PRN Q6HRS PRN PO MODERATE PAIN; Start 07/16/18 at 08:45 Ondansetron HCl (Zofran) 4 mg PRN Q6HRS PRN IV NAUSEA/VOMITING; Start at 08:45 Ondansetron HCl (Zofran Odt) 4 mg PRN Q6HRS PRN PO NAUSEA/VOMITING; Start at 08:45 Potassium Chloride (Klor-Con) 40 meq 1X ONCE PO ; Start 07/16/18 at 09:00; Stop 07/16/18 at 09:05; Status DC Potassium Chloride (Klor-Con) 20 meq 1X ONCE PO ; Start 07/16/18 at 09:00; Stop 07/16/18 at 09:05; Status DC Potassium Chloride (Klor-Con) 40 meq DAILYWBKFT PO ; Start 07/17/18 at 08:00 Cefazolin Sodium 1 gm/Dextrose 50 ml @ 100 mls/hr Q8HRS IV ; Start 07/16/18 at 11:30 Active Scripts Active Reported Potassium Chloride 10 Meq Tablet.er 10 Meq PO TID Lasix (Furosemide) 20 Mg Tablet 20 Mg PO DAILY Meclizine Hcl 25 Mg Tablet 1 Tab PO BID Metolazone 5 Mg Tablet 5 Mg PO DAILY Metoprolol Tartrate 25 Mg Tablet 1 Tab PO BID Coricidin Hbp Tablet (Acetaminophen/Chlorpheniramine) 1 Each Tablet 1 Each PO HS Aspirin 81 Mg Tab.chew 1 Tab PO DAILY Diclofenac Sodium 100 Gm Gel..gram. 1 Patch TOP QID Spiriva (Tiotropium [place]) 18 Mcg Cap.w.dev 1 Puff INH DAILY Symbicort 160-4.5 Mcg Inhaler (Budesonide/Formoterol Fumarate) 10.2 Gm Hfa.aer.ad 2 Puff INH BID Fluticasone Propionate Nasal [place] (Fluticasone Propionate) 16 Gm [place].susp 2 Sprays NS BID Lyrica (Pregabalin) 150 Mg Capsule 150 Mg PO TID Pramipexole Dihydrochloride (Pramipexole Di-Hcl) 0.125 Mg Tablet 0.125 Mg PO HS Levothyroxine Sodium 25 Mcg Tablet 25 Mcg PO DAILY07 Modafinil 100 Mg Tablet 100 Mg PO BID Lisinopril 2.5 Mg Tablet 2.5 Mg PO DAILY Simvastatin 40 Mg Tablet 40 Mg PO HS Celecoxib 200 Mg Capsule 200 Mg PO DAILY Klor-Con 10 (Potassium Chloride) 10 Meq Tablet.er 20 Meq PO DAILY Proctosol-Hc (Hydrocortisone) 28.35 Gm Cream..g. 1 Negar RC BID Furosemide 40 Mg Tablet 40 Mg PO BID Flector (Diclofenac Epolamine) 1 Each Patch.td12 1.5 Patch TOP DAILY Eliquis (Apixaban) 5 Mg Tablet 5 Mg PO BID Vyvanse (Lisdexamfetamine Dimesylate) 30 Mg Capsule 30 Mg PO DAILY Hydrocodone-Apap 7.5-325 (Hydrocodone Bit/Acetaminophen) 1 Each Tablet 1 Tab PO [id number] Vitals/I & O Vital Sign - Last 24 Hours 07/15/18 07/15/18 07/15/18 07/15/18 15:30 16:00 16:30 17:00 Temp 100.5 100.5 Pulse 100 78 86 82 Resp 18 23 B/P (MAP) 115/57 (76) 134/53 (80) 133/51 (78) 110/60 (77) Pulse Ox 97 95 95 O2 Delivery Room Air Room Air Room Air Room Air 07/15/18 07/15/18 07/15/18 07/15/18 17:30 18:00 18:30 19:00 Pulse 82 92 70 88 Resp 18 21 18 22 B/P (MAP) 89/52 (64) 84/50 (61) 110/61 (77) 99/57 (71) Pulse Ox 93 96 96 O2 Delivery Room Air Room Air Room Air Room Air 07/15/18 07/15/18 07/15/18 07/16/18 20:20 22:04 22:53 00:07 Temp 98.1 98.1 Pulse 84 Resp 18 20 B/P (MAP) 95/57 (70) Pulse Ox 94 O2 Delivery Room Air Room Air Room Air Room Air 07/16/18 07/16/18 07/16/18 07/16/18 03:00 06:30 07:00 08:00 Temp 98.1 97.5 98.1 97.5 Pulse 89 94 Resp 18 20 16 B/P (MAP) 117/63 (81) 94/55 (68) Pulse Ox 100 95 O2 Delivery Room Air Room Air Room Air Room Air 07/16/18 07/16/18 07/16/18 08:25 08:26 08:26 Pulse 94 94 B/P (MAP) 94/55 94/55 O2 Delivery Room Air Intake and Output 07/15/18 07/15/18 07/16/18 15:00 23:00 07:00 Intake Total 700 ml 250 ml Output Total 100 ml Balance 700 ml 150 ml MALA FORTE MD Jul 16, 2018 11:05
--- NOTE | 2018-07-16 11:27 | PDOC2 ---
CARDIAC CONSULT DATE OF CONSULT Date of Consult DATE: 07/16/18 TIME: 11:00 REASON FOR CONSULT Reason for Consult: CHF REFERRING PHYSICIAN Referring Physician: Yulia SOURCE Source: Chart review, Patient HISTORY OF PRESENT ILLNESS HISTORY OF PRESENT ILLNESS This is a pleasant 77 yo male admitted for complains of increasing leg swelling. Reports that in the last month his leg has been persistently edematous which at times becomes weepy. He was seen by his help desk associate about a month ago and his diuretic was increased. He has been voiding his usual. He does have neuropathy and has some pain to his legs particularly his RLE and noted that it has been a little red on the back of his calf. His leg swelling have been persistent and was told to go to ED. He deos have hx of VTE to his leg but none identified few months ago after follow up doppler and has been on eliquis. He has COPD and CHF and lately he has been having some SALMERON but this has not changed and has been the same in the last 1.5 months. Verbalized compliance with his medications, no nausea vomiting, or diarrhea. PAST MEDICAL HISTORY Past Medical History Cardiovascular: CAD, CHF (cardiomyopathy with past EF of 25% improving to 50%) , HTN, Hyperlipidemia, Valve insufficiency (mod AI), Other (venous insufficiency ), Chronic AFIB, chornic leg edema Pulmonary: COPD CENTRAL NERVOUS SYSTEM: Peripheral neuropathy, Vertigo GI: Other (hiatal hernia) Psych: No pertinent hx Musculoskeletal: low back pain, Osteoarthritis, Other (plantar fascitis; right RTC tear) Rheumatologic: No pertinent hx Infectious disease: No pertinent hx ENT: Allergic Rhinitis Renal/: Benign prostatic enlarg., Other (bladder CA) Endocrine: Hypothyroidism Dermatology: No pertinent hx PAST SURGICAL HISTORY Past Surgical History CABG x5 in 09/2012, Other (nasal surgery; lap band), cataract removal, prostate surgery, cholecystectomy, spinal fusion, laminectomy,lap band. FAMILY HISTORY Family History: Stroke (father) SOCIAL HISTORY Smoke: Quit ALCOHOL: none Drugs: None Lives: Alone CURRENT MEDICATIONS CURRENT MEDICATIONS Current Medications Medications (Trade) Dose Ordered Sig/Hari Route PRN Reason Start Time Stop Time Status Last Admin Dose Admin Piperacillin Sod/ Tazobactam Sod 3.375 gm/Sodium Chloride 50 ml @ 100 mls/hr 1X ONCE IV 07/15/18 16:00 07/15/18 16:29 DC 07/15/18 16:54 Vancomycin HCl 2 gm/Sodium Chloride 500 ml @ 250 mls/hr 1X ONCE IV 07/15/18 16:30 07/15/18 18:29 DC 07/15/18 17:45 Acetaminophen (Tylenol) 1,000 mg 1X ONCE PO 07/15/18 16:30 07/15/18 16:31 DC 07/15/18 16:57 Sodium Chloride 500 ml @ 500 mls/hr 1X ONCE IV 07/15/18 18:30 07/15/18 19:29 DC 07/15/18 17:58 Apixaban (Eliquis) 5 mg BID PO 07/15/18 21:00 07/16/18 08:22 Aspirin (Children'S Aspirin) 81 mg DAILY PO 07/16/18 09:00 07/16/18 08:19 Diclofenac Sodium (Voltaren) 1 chao QID TP 07/15/18 21:00 07/16/18 08:27 Fluticasone Propionate (Flonase) 2 spray BID NS 07/15/18 21:00 07/16/18 08:24 Acetaminophen/ Hydrocodone Bitart (Lortab 7.5/325) 1 tab BID66 PO 07/16/18 06:00 07/16/18 06:30 Hydrocortisone (Proctosol-Hc) 1 chao BID RC 07/15/18 21:00 07/16/18 08:24 Potassium Chloride (Klor-Con) 20 meq DAILY PO 07/16/18 09:00 07/16/18 08:23 Budesonide (Pulmicort) 0.5 mg RTBID NEB 07/15/18 20:30 07/16/18 00:05 Guaifenesin (Mucinex) 1,200 mg DAILY PO 07/16/18 09:00 07/16/18 08:19 Levothyroxine Sodium (Synthroid) 25 mcg DAILY06 PO 07/16/18 06:00 07/16/18 06:29 Pramipexole Dihydrochloride (miraPEX) 0.125 mg QHS PO 07/15/18 21:00 07/15/18 21:56 Pregabalin (Lyrica) 150 mg TID PO 07/15/18 21:00 07/16/18 08:22 Simvastatin (Zocor) 40 mg QHS PO 07/15/18 21:00 07/15/18 21:55 Albuterol/ Ipratropium (Duoneb) 3 ml RTQID NEB 07/15/18 20:00 07/16/18 00:05 Acetaminophen/ Hydrocodone Bitart (Lortab 7.5/325) 1 tab 1X ONCE PO 07/15/18 22:30 07/15/18 22:31 DC 07/15/18 22:53 Potassium Chloride (Klor-Con) 40 meq 1X ONCE PO 07/16/18 06:45 07/16/18 06:58 DC 07/16/18 07:20 ALLERGIES ALLERGIES: Coded Allergies: fentanyl (Verified Allergy, Intermediate, 04/10/18) patch oxymorphone (Verified Allergy, Intermediate, 04/10/18) Tolerates hydrocodone ROS Review of System 14 point ROS evaluated with pertinent positives noted per HPI PHYSICAL EXAM General: Alert, Oriented X3, Cooperative, No acute distress HEENT: Atraumatic, Mucous membr. moist/pink Lungs: Clear to auscultation, Normal air movement Heart: Other (AFIB; 3/6 diastolic murmur to erbs) Abdomen: Soft, Other (truncal obesity) Extremities: No cyanosis, Other (4+ bilateral LE pitting edema erythema to right calf) Skin: No breakdown, No significant lesion Neuro: Normal speech, Sensation intact Psych/Mental Status: Mental status NL, Mood NL MUSCULOSKELETAL: Osteoarthritic changes both hands VITALS VITALS Vital Signs Date Time Temp Pulse Resp B/P (MAP) Pulse Ox O2 Delivery O2 Flow Rate FiO2 07/16/18 11:00 98.0 97 20 103/57 (72) 93 Room Air 98.0 LABS Lab: Laboratory Tests Test 07/15/18 15:52 07/15/18 20:44 07/16/18 04:30 07/16/18 07:25 White Blood Count 6.0 x10^3/uL (4.0-11.0) 4.1 x10^3/uL (4.0-11.0) Red Blood Count 2.88 x10^6/uL (4.30-5.70) 2.72 x10^6/uL (4.30-5.70) Hemoglobin 9.3 g/dL (13.0-17.5) 8.6 g/dL (13.0-17.5) Hematocrit 26.9 % (39.0-53.0) 25.6 % (39.0-53.0) Mean Corpuscular Volume 94 fL (79-100) 94 fL (79-100) Mean Corpuscular Hemoglobin 33 pg (25-35) 32 pg (25-35) Mean Corpuscular Hemoglobin Concent 35 g/dL (31-37) 34 g/dL (31-37) Red Cell Distribution Width 15.8 % (11.5-14.5) 15.6 % (11.5-14.5) Platelet Count 144 x10^3/uL (140-400) 117 x10^3/uL (140-400) Neutrophils (%) (Auto) 70 % (31-73) 70 % (31-73) Lymphocytes (%) (Auto) 17 % (24-48) 19 % (24-48) Monocytes (%) (Auto) 10 % (0-9) 10 % (0-9) Eosinophils (%) (Auto) 1 % (0-3) 2 % (0-3) Basophils (%) (Auto) 1 % (0-3) 1 % (0-3) Neutrophils # (Auto) 4.2 x10^3uL (1.8-7.7) 2.9 x10^3uL (1.8-7.7) Lymphocytes # (Auto) 1.0 x10^3/uL (1.0-4.8) 0.8 x10^3/uL (1.0-4.8) Monocytes # (Auto) 0.6 x10^3/uL (0.0-1.1) 0.4 x10^3/uL (0.0-1.1) Eosinophils # (Auto) 0.1 x10^3/uL (0.0-0.7) 0.1 x10^3/uL (0.0-0.7) Basophils # (Auto) 0.1 x10^3/uL (0.0-0.2) 0.0 x10^3/uL (0.0-0.2) Sodium Level 139 mmol/L (136-145) 142 mmol/L (136-145) Potassium Level 3.0 mmol/L (3.5-5.1) 2.7 mmol/L (3.5-5.1) Chloride Level 101 mmol/L (98-107) 103 mmol/L (98-107) Carbon Dioxide Level 26 mmol/L (21-32) 27 mmol/L (21-32) Anion Gap 12 (6-14) 12 (6-14) Blood Urea Nitrogen 37 mg/dL (8-26) 33 mg/dL (8-26) Creatinine 1.6 mg/dL (0.7-1.3) 1.5 mg/dL (0.7-1.3) Estimated GFR (Cockcroft-Gault) 42.3 45.6 BUN/Creatinine Ratio 23 (6-20) Glucose Level 114 mg/dL (70-99) 110 mg/dL (70-99) Lactic Acid Level 2.0 mmol/L (0.4-2.0) Calcium Level 9.3 mg/dL (8.5-10.1) 8.5 mg/dL (8.5-10.1) Total Bilirubin 0.7 mg/dL (0.2-1.0) Aspartate Amino Transf (AST/SGOT) 26 U/L (15-37) Alanine Aminotransferase (ALT/SGPT) 22 U/L (16-63) Alkaline Phosphatase 42 U/L (46-116) Troponin I Quantitative < 0.017 ng/mL (0.000-0.055) RG-[id number]-P-Type Natriuretic Peptide 1163 pg/mL (0-449) Total Protein 7.1 g/dL (6.4-8.2) Albumin 3.3 g/dL (3.4-5.0) 3.1 g/dL (3.4-5.0) Albumin/Globulin Ratio 0.9 (1.0-1.7) Glucose (Fingerstick) 109 mg/dL (70-99) 108 mg/dL (70-99) Erythrocyte Sedimentation Rate 25 (0-15) Phosphorus Level 3.3 mg/dL (2.6-4.7) IMAGES IMAGES Findings: There is normal duplex flow, color flow and compressibility of all visualized vein segments. No evidence of deep venous thrombus is present. Impression: No evidence of DVT. DATE: 03/30/18 0750 ECHOCARDIOGRAM ECHOCARDIOGRAM <Conclusion> The left ventricular systolic function is normal. The ejection fraction is estimated at 60-65%. There is normal LV segmental wall motion. Moderate aortic regurgitation. There is no evidence of significant pericardial effusion. DATE: 12/11/17 1551 STRESS TEST STRESS TEST Conclusion 1. Regadenoson cardioisotope stress test showed small anterior wall infarct without any significant ischemia. 2. Abnormal septal wall motion probably from postoperative state. The ejection fraction was calculated at 51%. 3. Low risk for cardiac events. DATE: 04/09/18 1252 ASSESSMENT/PLAN ASSESSMENT/PLAN 1. RLE cellulitis with chronic lymphedema: Multifactorial 2. Chronic diastolic CHF: compensated. 3. COPD/LEFTY:CPAP compliant 4. LEONOR suspect on CKD3 with hypokalemia: nephrology consulted. 5. Chronic AFIB: on eliquis, rate controlled 6. Mod AI 7. Hx of RLE VTE 8. anemia of chronic disease: Hgb 8.6 9. HTN: controlled 10. HLP 11. CAD; past CABG x5, clinically stable. Recommendations 1. Lymphedema consult. Check INR. TTE. LE arterial duplex. 2. Continue with BB and eliquis. Replace K and continue secondary prevention measures. DREW CAR [employer] FEEDER Jul 16, 2018 11:26
[2018-07-16] MEDS: ceFAZolin SODIUM 1 GM in IV DEXTROSE 5% 50 ML IV SCH ×2 (12:02→23:14)
[2018-07-16 12:22] LABS: CHOLESTEROL/HDL RATIO 2.5
--- NOTE | 2018-07-16 12:22 | PDOC2 ---
CONSULT Date of Consult Date of Consult DATE: 07/16/18 TIME: 12:14 Reason for Consult Reason for Consult: EDEMA, RENAL FAILURE Referring Physician Referring Physician: THEE Identification/Chief Complaint Chief Complaint SOB Source Source: Chart review, Patient History of Present Illness Reason for Visit: THIS IS A 77 YR OLD OBESE WHITE MALE WITH A HX OF CHF. ADMITTED WITH SOB AND LE EDEMA. ALSO NOTED TO HAVE SOME LE CELLULITIS. CR NOTED TO BE 1.6. HAS HAD CR IN THE RANGE OF 1.2-1.5 IN THE PAST. MEDS INCLUDE CELEBREX AND AN CARLY-I ALONG WITH DIURETICS. HAS HAD SOME INCREASE OF HIS DIURETICS BY HIS CARDIOLOGISTS. NO OTHER HX. PT ABLE TO EMPTY HIS BLADDER WELL Past Medical History Cardiovascular: CAD, CHF, HTN, Hyperlipidemia, Valve insufficiency, Other Pulmonary: COPD CENTRAL NERVOUS SYSTEM: Periperal neuropathy, Vertigo GI: Other Psych: No pertinent hx Musculoskeletal: low back pain, Osteoarthritis, Other Rheumatologic: No pertinent hx Infectious disease: No pertinent hx ENT: No pertinent hx Renal/: Chronic renal insuff, Benign prostatic enlarg., Other Endocrine: Diabetes, Hypothyroidism Past Surgical History Past Surgical History: CABG, Other Family History Family History: Stroke (father) Social History Social History: Parent Quit ALCOHOL: none Drugs: None Lives: Alone Current Problem List Problem List Problems Medical Problems: (1) Cellulitis Status: Acute (2) CHF (congestive heart failure) Status: Acute Current Medications Current Medications Current Medications Vancomycin HCl 250 ml @ 250 mls/hr 1X ONCE IV ; Start 07/15/18 at 16:00; Stop 07/15/18 at 16:59; Status Cancel Piperacillin Sod/ Tazobactam Sod 3.375 gm/Sodium Chloride 50 ml @ 100 mls/hr 1X ONCE IV Last administered on 07/15/18at 16:54; Start 07/15/18 at 16:00; Stop 07/15/18 at 16:29; Status DC Vancomycin HCl 2 gm/Sodium Chloride 500 ml @ 250 mls/hr 1X ONCE IV Last administered on 07/15/18at 17:45; Start 07/15/18 at 16:30; Stop 07/15/18 at 18 :29; Status DC Acetaminophen (Tylenol) 1,000 mg 1X ONCE PO Last administered on 07/15/18at 16 :57; Start 07/15/18 at 16:30; Stop 07/15/18 at 16:31; Status DC Sodium Chloride 500 ml @ 500 mls/hr 1X ONCE IV Last administered on at 17:58; Start 07/15/18 at 18:30; Stop 07/15/18 at 19:29; Status DC Sodium Chloride 500 ml @ 500 mls/hr 1X ONCE IV ; Start 07/15/18 at 18:00; Stop 07/15/18 at 18:59; Status DC Apixaban (Eliquis) 5 mg BID PO Last administered on 07/16/18at 08:22; Start at 21:00 Aspirin (Children'S Aspirin) 81 mg DAILY PO Last administered on 07/16/18 08: 19; Start 07/16/18 at 09:00 Diclofenac Sodium (Voltaren) 1 negar QID TP Last administered on 07/16/18at 08:27 ; Start 07/15/18 at 21:00 Fluticasone Propionate (Flonase) 2 spray BID NS Last administered on at 08:24; Start 07/15/18 at 21:00 Acetaminophen/ Hydrocodone Bitart (Lortab 7.5/325) 1 tab BID66 PO Last administered on 07/16/18at 06:30; Start 07/16/18 at 06:00 Hydrocortisone (Proctosol-Hc) 1 negar BID RC Last administered on 07/16/18at 08: 24; Start 07/15/18 at 21:00 Metoprolol Tartrate (Lopressor) 25 mg BID PO ; Start 07/15/18 at 21:00 Potassium Chloride (Klor-Con) 20 meq DAILY PO Last administered on 07/16/18at 08:23; Start 07/16/18 at 09:00 Tramadol HCl (Ultram) 50 mg PRN TID PRN PO SEVERE PAIN; Start 07/15/18 at 20: 00 Non-Formulary Medication (Acetaminophen/ Chlorpheniramine (Coricidin Hbp Tablet) ) 1 each HS PO ; Start 07/15/18 at 21:00; Status UNV Budesonide (Pulmicort) 0.5 mg RTBID NEB Last administered on 07/16/18at 00:05; Start 07/15/18 at 20:30 Non-Formulary Medication (Celecoxib ) 200 mg DAILY PO ; Start 07/16/18 at 09:00 ; Stop 07/16/18 at 09:00; Status DC Non-Formulary Medication (Diclofenac Epolamine (Flector)) 1.5 patch DAILY TOP ; Start 07/16/18 at 09:00; Status UNV Guaifenesin (Mucinex) 1,200 mg DAILY PO Last administered on 07/16/18at 08:19; Start 07/16/18 at 09:00 Levothyroxine Sodium (Synthroid) 25 mcg DAILY06 PO Last administered on at 06:29; Start 07/16/18 at 06:00 Non-Formulary Medication (Lisdexamfetamine Dimesylate (Vyvanse)) 30 mg DAILY PO ; Start 07/16/18 at 09:00; Status UNV Lisinopril (Prinivil) 2.5 mg DAILY PO ; Start 07/16/18 at 09:00 Pramipexole Dihydrochloride (miraPEX) 0.125 mg QHS PO Last administered on at 21:56; Start 07/15/18 at 21:00 Pregabalin (Lyrica) 150 mg TID PO Last administered on 07/16/18at 08:22; Start 07/15/18 at 21:00 Simvastatin (Zocor) 40 mg QHS PO Last administered on 07/15/18at 21:55; Start 07/15/18 at 21:00 Albuterol/ Ipratropium (Duoneb) 3 ml RTQID NEB Last administered on 07/16/18at 00:05; Start 07/15/18 at 20:00 Acetaminophen/ Hydrocodone Bitart (Lortab 7.5/325) 1 tab 1X ONCE PO Last administered on 07/15/18at 22:53; Start 07/15/18 at 22:30; Stop 07/15/18 at 22 :31; Status DC Potassium Chloride (Klor-Con) 40 meq 1X ONCE PO Last administered on at 07:20; Start 07/16/18 at 06:45; Stop 07/16/18 at 06:58; Status DC Acetaminophen (Tylenol) 500 mg PRN Q6HRS PRN PO MILD PAIN / TEMP; Start 10/24/ 18 at 08:45 Acetaminophen/ Codeine Phosphate (Tylenol #3) 1 tab PRN Q6HRS PRN PO MODERATE PAIN; Start 07/16/18 at 08:45 Ondansetron HCl (Zofran) 4 mg PRN Q6HRS PRN IV NAUSEA/VOMITING; Start at 08:45 Ondansetron HCl (Zofran Odt) 4 mg PRN Q6HRS PRN PO NAUSEA/VOMITING; Start at 08:45 Potassium Chloride (Klor-Con) 40 meq 1X ONCE PO ; Start 07/16/18 at 09:00; Stop 07/16/18 at 09:05; Status DC Potassium Chloride (Klor-Con) 20 meq 1X ONCE PO ; Start 07/16/18 at 09:00; Stop 07/16/18 at 09:05; Status DC Potassium Chloride (Klor-Con) 40 meq DAILYWBKFT PO ; Start 07/17/18 at 08:00 Cefazolin Sodium 1 gm/Dextrose 50 ml @ 100 mls/hr Q8HRS IV Last administered on 07/16/18at 12:02; Start 07/16/18 at 11:30 Active Scripts Active Reported Potassium Chloride 10 Meq Tablet.er 10 Meq PO TID Lasix (Furosemide) 20 Mg Tablet 20 Mg PO DAILY Meclizine Hcl 25 Mg Tablet 1 Tab PO BID Metolazone 5 Mg Tablet 5 Mg PO DAILY Metoprolol Tartrate 25 Mg Tablet 1 Tab PO BID Coricidin Hbp Tablet (Acetaminophen/Chlorpheniramine) 1 Each Tablet 1 Each PO HS Aspirin 81 Mg Tab.chew 1 Tab PO DAILY Diclofenac Sodium 100 Gm Gel..gram. 1 Patch TOP QID Spiriva (Tiotropium [place]) 18 Mcg Cap.w.dev 1 Puff INH DAILY Symbicort 160-4.5 Mcg Inhaler (Budesonide/Formoterol Fumarate) 10.2 Gm Hfa.aer.ad 2 Puff INH BID Fluticasone Propionate Nasal [place] (Fluticasone Propionate) 16 Gm [place].susp 2 Sprays NS BID Lyrica (Pregabalin) 150 Mg Capsule 150 Mg PO TID Pramipexole Dihydrochloride (Pramipexole Di-Hcl) 0.125 Mg Tablet 0.125 Mg PO HS Levothyroxine Sodium 25 Mcg Tablet 25 Mcg PO DAILY07 Modafinil 100 Mg Tablet 100 Mg PO BID Lisinopril 2.5 Mg Tablet 2.5 Mg PO DAILY Simvastatin 40 Mg Tablet 40 Mg PO HS Celecoxib 200 Mg Capsule 200 Mg PO DAILY Klor-Con 10 (Potassium Chloride) 10 Meq Tablet.er 20 Meq PO DAILY Proctosol-Hc (Hydrocortisone) 28.35 Gm Cream..g. 1 Negar RC BID Furosemide 40 Mg Tablet 40 Mg PO BID Flector (Diclofenac Epolamine) 1 Each Patch.td12 1.5 Patch TOP DAILY Eliquis (Apixaban) 5 Mg Tablet 5 Mg PO BID Vyvanse (Lisdexamfetamine Dimesylate) 30 Mg Capsule 30 Mg PO DAILY Hydrocodone-Apap 7.5-325 (Hydrocodone Bit/Acetaminophen) 1 Each Tablet 1 Tab PO BID66 Allergies Allergies: Coded Allergies: fentanyl (Verified Allergy, Intermediate, 04/10/18) patch oxymorphone (Verified Allergy, Intermediate, 04/10/18) Tolerates hydrocodone ROS General: YES: Fatigue, Appetite PSYCHOLOGICAL ROS: YES: Anxiety Eyes: Yes Decreased vision HEENT: YES: Heacaches Respiratory: YES: Cough, Orthopnea, Shortness of breath, SOB with excertion Cardiovascular: yes Edema, yes Lt Headedness Gastrointestinal: Yes Constipation Genitourinary: YES Other (NOCTURIA) Musculoskeletal: Yes Muscular Weakness Neurological: Yes Weakness Skin: Yes Dry Skin Physical Exam General: Alert, Oriented X3, Cooperative, No acute distress HEENT: Atraumatic, PERRLA, Other (DECREASED AT BASES) Heart: Regular rate Abdomen: Normal bowel sounds, Soft, No tenderness Skin: No rashes, No breakdown, Other (RLE ERYTHEMA) Neuro: Normal speech, Sensation intact, Cranial nerves 3-12 NL Psych/Mental Status: Mental status NL, Mood NL MUSCULOSKELETAL: No deformity, Other (2+ EDEMA) Vitals VITALS Vital Signs Date Time Temp Pulse Resp B/P (MAP) Pulse Ox O2 Delivery O2 Flow Rate FiO2 07/16/18 11:00 98.0 97 20 103/57 (72) 93 Room Air 98.0 Labs Labs Laboratory Tests Test 07/15/18 15:52 07/15/18 20:44 07/16/18 04:30 07/16/18 07:25 White Blood Count 6.0 x10^3/uL (4.0-11.0) 4.1 x10^3/uL (4.0-11.0) Red Blood Count 2.88 x10^6/uL (4.30-5.70) 2.72 x10^6/uL (4.30-5.70) Hemoglobin 9.3 g/dL (13.0-17.5) 8.6 g/dL (13.0-17.5) Hematocrit 26.9 % (39.0-53.0) 25.6 % (39.0-53.0) Mean Corpuscular Volume 94 fL (79-100) 94 fL (79-100) Mean Corpuscular Hemoglobin 33 pg (25-35) 32 pg (25-35) Mean Corpuscular Hemoglobin Concent 35 g/dL (31-37) 34 g/dL (31-37) Red Cell Distribution Width 15.8 % (11.5-14.5) 15.6 % (11.5-14.5) Platelet Count 144 x10^3/uL (140-400) 117 x10^3/uL (140-400) Neutrophils (%) (Auto) 70 % (31-73) 70 % (31-73) Lymphocytes (%) (Auto) 17 % (24-48) 19 % (24-48) Monocytes (%) (Auto) 10 % (0-9) 10 % (0-9) Eosinophils (%) (Auto) 1 % (0-3) 2 % (0-3) Basophils (%) (Auto) 1 % (0-3) 1 % (0-3) Neutrophils # (Auto) 4.2 x10^3uL (1.8-7.7) 2.9 x10^3uL (1.8-7.7) Lymphocytes # (Auto) 1.0 x10^3/uL (1.0-4.8) 0.8 x10^3/uL (1.0-4.8) Monocytes # (Auto) 0.6 x10^3/uL (0.0-1.1) 0.4 x10^3/uL (0.0-1.1) Eosinophils # (Auto) 0.1 x10^3/uL (0.0-0.7) 0.1 x10^3/uL (0.0-0.7) Basophils # (Auto) 0.1 x10^3/uL (0.0-0.2) 0.0 x10^3/uL (0.0-0.2) Sodium Level 139 mmol/L (136-145) 142 mmol/L (136-145) Potassium Level 3.0 mmol/L (3.5-5.1) 2.7 mmol/L (3.5-5.1) Chloride Level 101 mmol/L (98-107) 103 mmol/L (98-107) Carbon Dioxide Level 26 mmol/L (21-32) 27 mmol/L (21-32) Anion Gap 12 (6-14) 12 (6-14) Blood Urea Nitrogen 37 mg/dL (8-26) 33 mg/dL (8-26) Creatinine 1.6 mg/dL (0.7-1.3) 1.5 mg/dL (0.7-1.3) Estimated GFR (Cockcroft-Gault) 42.3 45.6 BUN/Creatinine Ratio 23 (6-20) Glucose Level 114 mg/dL (70-99) 110 mg/dL (70-99) Lactic Acid Level 2.0 mmol/L (0.4-2.0) Calcium Level 9.3 mg/dL (8.5-10.1) 8.5 mg/dL (8.5-10.1) Total Bilirubin 0.7 mg/dL (0.2-1.0) Aspartate Amino Transf (AST/SGOT) 26 U/L (15-37) Alanine Aminotransferase (ALT/SGPT) 22 U/L (16-63) Alkaline Phosphatase 42 U/L (46-116) Troponin I Quantitative < 0.017 ng/mL (0.000-0.055) EO-Tna-G-Type Natriuretic Peptide 1163 pg/mL (0-449) Total Protein 7.1 g/dL (6.4-8.2) Albumin 3.3 g/dL (3.4-5.0) 3.1 g/dL (3.4-5.0) Albumin/Globulin Ratio 0.9 (1.0-1.7) Glucose (Fingerstick) 109 mg/dL (70-99) 108 mg/dL (70-99) Erythrocyte Sedimentation Rate 25 (0-15) Phosphorus Level 3.3 mg/dL (2.6-4.7) Laboratory Tests Test 07/15/18 15:52 07/15/18 20:44 07/16/18 04:30 07/16/18 07:25 White Blood Count 6.0 x10^3/uL (4.0-11.0) 4.1 x10^3/uL (4.0-11.0) Red Blood Count 2.88 x10^6/uL (4.30-5.70) 2.72 x10^6/uL (4.30-5.70) Hemoglobin 9.3 g/dL (13.0-17.5) 8.6 g/dL (13.0-17.5) Hematocrit 26.9 % (39.0-53.0) 25.6 % (39.0-53.0) Mean Corpuscular Volume 94 fL (79-100) 94 fL (79-100) Mean Corpuscular Hemoglobin 33 pg (25-35) 32 pg (25-35) Mean Corpuscular Hemoglobin Concent 35 g/dL (31-37) 34 g/dL (31-37) Red Cell Distribution Width 15.8 % (11.5-14.5) 15.6 % (11.5-14.5) Platelet Count 144 x10^3/uL (140-400) 117 x10^3/uL (140-400) Neutrophils (%) (Auto) 70 % (31-73) 70 % (31-73) Lymphocytes (%) (Auto) 17 % (24-48) 19 % (24-48) Monocytes (%) (Auto) 10 % (0-9) 10 % (0-9) Eosinophils (%) (Auto) 1 % (0-3) 2 % (0-3) Basophils (%) (Auto) 1 % (0-3) 1 % (0-3) Neutrophils # (Auto) 4.2 x10^3uL (1.8-7.7) 2.9 x10^3uL (1.8-7.7) Lymphocytes # (Auto) 1.0 x10^3/uL (1.0-4.8) 0.8 x10^3/uL (1.0-4.8) Monocytes # (Auto) 0.6 x10^3/uL (0.0-1.1) 0.4 x10^3/uL (0.0-1.1) Eosinophils # (Auto) 0.1 x10^3/uL (0.0-0.7) 0.1 x10^3/uL (0.0-0.7) Basophils # (Auto) 0.1 x10^3/uL (0.0-0.2) 0.0 x10^3/uL (0.0-0.2) Sodium Level 139 mmol/L (136-145) 142 mmol/L (136-145) Potassium Level 3.0 mmol/L (3.5-5.1) 2.7 mmol/L (3.5-5.1) Chloride Level 101 mmol/L (98-107) 103 mmol/L (98-107) Carbon Dioxide Level 26 mmol/L (21-32) 27 mmol/L (21-32) Anion Gap 12 (6-14) 12 (6-14) Blood Urea Nitrogen 37 mg/dL (8-26) 33 mg/dL (8-26) Creatinine 1.6 mg/dL (0.7-1.3) 1.5 mg/dL (0.7-1.3) Estimated GFR (Cockcroft-Gault) 42.3 45.6 BUN/Creatinine Ratio 23 (6-20) Glucose Level 114 mg/dL (70-99) 110 mg/dL (70-99) Lactic Acid Level 2.0 mmol/L (0.4-2.0) Calcium Level 9.3 mg/dL (8.5-10.1) 8.5 mg/dL (8.5-10.1) Total Bilirubin 0.7 mg/dL (0.2-1.0) Aspartate Amino Transf (AST/SGOT) 26 U/L (15-37) Alanine Aminotransferase (ALT/SGPT) 22 U/L (16-63) Alkaline Phosphatase 42 U/L (46-116) Troponin I Quantitative < 0.017 ng/mL (0.000-0.055) UF-Oad-H-Type Natriuretic Peptide 1163 pg/mL (0-449) Total Protein 7.1 g/dL (6.4-8.2) Albumin 3.3 g/dL (3.4-5.0) 3.1 g/dL (3.4-5.0) Albumin/Globulin Ratio 0.9 (1.0-1.7) Glucose (Fingerstick) 109 mg/dL (70-99) 108 mg/dL (70-99) Erythrocyte Sedimentation Rate 25 (0-15) Phosphorus Level 3.3 mg/dL (2.6-4.7) Assessment/Plan Assessment/Plan IMP CKD STAGE 2-CR OF 1.2-1.5 IN THE PAST MILD LEONOR NOW WITH CR OF 1.6-MOST LIKELY DUE TO CELEBREX AND CARLY-I COMBINATION LE EDEMA LE CELLULITIS HYPOKALEMIA DIASTOLIC CHF ANEMIA COPD OBESITY PLAN CONT WITH CURRENT MEDS RESUME DIURETICS CONT ANTIBIOTICS UA WITH MICRO NATE KIM MD Jul 16, 2018 12:22
[2018-07-16 12:24] LABS: PROTHROMBIN TIME PATIENT 18.5 SEC (11.7-14.0)
[2018-07-16] MEDS: FUROSEMIDE 40 MG TABLET. PO SCH ×2 (13:52→21:22)
[2018-07-16] MEDS: metOLazone 2.5 MG TABLET PO SCH (13:52)
[2018-07-16 15:00] VITALS: BP 129/73
[2018-07-16] MEDS: ANTI-COAG MONITOR BY PHARMACY. MC PRN (16:24)
--- NOTE | 2018-07-16 16:28 | CARD ---
MR#: [id number] Date of Study: 07/16/2018 Ordering Physician: MANDEEP KINGSTON, Referring Physician: MANDEEP KINGSTON, Tech: Yanelis Wise APPROVED REPORT EXAM: Two-dimensional and M-mode echocardiogram with Doppler and color Doppler. Other Information Quality : AverageHR: 85bpm Rhythm : NSR INDICATION Congestive Heart Failure 2D DIMENSIONS RVDd2.4 (2.9-3.5cm)Left Atrium(2D)5.2 (1.6-4.0cm) IVSd1.3 (0.7-1.1cm)Aortic Root(2D)3.8 (2.0-3.7cm) LVDd4.9 (3.9-5.9cm)LVOT Diameter2.2 (1.8-2.4cm) PWd1.0 (0.7-1.1cm)LVDs3.0 (2.5-4.0cm) FS (%) 39.5 %SV80.3 ml LVEF(%)69.9 (>50%) Aortic Valve AoV Peak Bryan.214.9cm/sAoV VTI40.1cm AO Peak GR.18.5mmHgLVOT Peak Bryan.107.4cm/s AO Mean GR.12mmHgAVA (VMAX)1.92cm2 AI P 1/2 [id number] Pulmonary Valve PV Peak Bucqpdji41.1cm/s Tricuspid Valve TR P. Mznebzlu756mt/sRAP [id number] TR Peak Gr.52amHmCITT05vmMj LEFT VENTRICLE The left ventricle is normal size. There is mild concentric left ventricular hypertrophy. The left ve ntricular systolic function is normal. The Ejection Fraction is 55-60%. There is normal LV segmental wall motion. RIGHT VENTRICLE The right ventricle is normal size. There is normal right ventricular wall thickness. The right ventr icular systolic function is normal. ATRIA The left atrium is mildly dilated. The right atrium is borderline dilated. The interatrial septum is intact with no evidence for an atrial septal defect or patent foramen ovale as noted on 2-D or Dopple r imaging. AORTIC VALVE The aortic valve is not well visualized. Doppler and Color Flow revealed mild aortic regurgitation. T here is no significant aortic valvular stenosis. MITRAL VALVE The mitral valve is mildly thickened. Doppler and Color-flow revealed trace mitral regurgitation. TRICUSPID VALVE The tricuspid valve is not well visualized. Doppler and Color Flow revealed trace tricuspid regurgita tion. There is no tricuspid valve stenosis. PULMONIC VALVE The pulmonic valve is not well visualized. Doppler and Color Flow revealed no pulmonic valvular regur gitation. GREAT VESSELS The aortic root is normal in size. The IVC is dilated and collapses <50% with inspiration. PERICARDIAL EFFUSION There is no evidence of significant pericardial effusion. Critical Notification Critical Value: No <Conclusion> The left ventricular systolic function is normal. The Ejection Fraction is 55-60%. There is normal LV segmental wall motion. The left atrium is mildly dilated. Mild aortic regurgitation. Trace mitral regurgitation. Trace tricuspid regurgitation. There is no evidence of significant pericardial effusion. Signed by : Speedy eGorge, Electronically Approved : 07/16/2018 16:28:10
[2018-07-16] MEDS ORDERED: IPRATRPIUM/ALBUTEROL 0.5/2.5MG 3 ML NEBU. NEB PRN (16:30)
[2018-07-16] MEDS ORDERED: BUDESONIDE 0.5 MG/2 ML NEBU. NEB PRN (16:30)
[2018-07-16] MEDS: ACETAMINOPHEN 500 MG TABLET PO PRN (16:43)
[2018-07-16 16:53] LABS: BILIRUBIN,URINE NEGATIVE (NEG); CLARITY,URINE CLEAR; COLOR,URINE YELLOW; NITRITE,URINE NEGATIVE (NEG); PH,URINE 6.5; PROTEIN,URINE NEGATIVE (NEG-TRACE); UROBILINOGEN,URINE 0.2 mg/dL (0.2 mg/dL)
[2018-07-16 17:04] LABS: BACTERIA,URINE 0 /HPF (0-FEW); HYALINE CASTS, URINE FEW /HPF; RBC,URINE OCC /HPF (0-2); SQUAMOUS EPITHELIAL CELL,UR FEW /LPF; WBC,URINE OCC /HPF (0-4)
[2018-07-16 19:00] VITALS: BP 120/57
--- NOTE | 2018-07-16 19:40 | CONS ---
DATE OF CONSULTATION: 07/16/2018 REQUESTING PHYSICIAN: Anam Castro MD. REASON FOR CONSULTATION: Cellulitis. HISTORY OF PRESENT ILLNESS: This is a 77-year-old gentleman with morbid obesity, CHF who came in with right leg swelling, leaking and redness, also has shortness of breath with any activity. The patient has had low-grade fever when he came in. The patient denies any nausea, vomiting, diarrhea, chest pain, shortness of breath, abdominal pain, urinary symptoms or bowel symptoms. PAST MEDICAL HISTORY: Positive for congestive heart failure, venous insufficiency, leakage from the legs, obesity, atrial fibrillation, COPD, diabetes, hyperlipidemia, hypertension. PAST SURGICAL HISTORY: Has had appendicectomy, coronary artery bypass surgery. SOCIAL HISTORY: Negative for smoking. He quit smoking in 2008, he says and he quit drinking about 4 years ago. ALLERGIES: No known drug allergies. CURRENT MEDICATIONS: Reviewed. The patient received 1 dose of vancomycin and 1 dose of Zosyn. REVIEW OF SYSTEMS: As per HPI, all other systems reviewed are negative. PHYSICAL EXAMINATION: GENERAL: Alert, oriented gentleman, not in any distress. VITAL SIGNS: Stable with a T-max 100.5. HEENT: Anicteric. NECK: Supple, no JVP, no lymphadenopathy. LUNGS: Clear. HEART: S1, S2 regular. ABDOMEN: Benign. EXTREMITIES: Bilateral about 2-3+ pitting edema present. The patient does have venous insufficiency changes present. SKIN: Does have stasis dermatitis, but he also has acute cellulitis on the right lateral leg.. Rest of the skin examination unremarkable. NEUROLOGIC: The patient is neurologically intact. LABORATORY DATA: White count is 4.1, BUN and creatinine is 33 and 1.5. Urinalysis unremarkable. His chest x-ray and ultrasound is unremarkable. IMPRESSION: 1. Right lower extremity cellulitis. 2. Fever. 3. Congestive heart failure. 4. Renal insufficiency. 5. Obesity. 6. Atrial fibrillation. 7. Chronic obstructive pulmonary disease. 8. Diabetes. RECOMMENDATION: Would initiate cefazolin IV. Supportive care, leg elevation. PT, OT and fluid management as per Cardiology or primary. Thank you very much, Dr. Castro, for giving me the opportunity to participate in this patient's care. ELYSSA R. GILLIS, MD DR: BENNIE/mitchell JOB#: [id number] / [id number]
[2018-07-16] MEDS: ACETAMINOPHEN PO SCH (21:00)
[2018-07-16] MEDS: CHLORPHENIRAMINE PO SCH (21:00)
[2018-07-16] MEDS: SIMVASTATIN 40 MG TABLET. PO SCH (21:14)
[2018-07-16] MEDS: PRAMIPEXOLE 0.25 MG TABLET. PO SCH (21:15)
[2018-07-16 23:00] VITALS: BP 100/47
[2018-07-17 03:00] VITALS: BP 102/55
[2018-07-17 05:07] LABS: CALCIUM 9.1 mg/dL (8.5-10.1); CREATININE 1.4 mg/dL (0.7-1.3); GFR 49.4; MAGNESIUM 1.8 mg/dL (1.8-2.4)
[2018-07-17 05:26] LABS: POTASSIUM 2.9 mmol/L (3.5-5.1)
[2018-07-17] MEDS: LEVOTHYROXINE 25 MCG TABLET. PO SCH (06:19)
[2018-07-17] MEDS: ceFAZolin SODIUM 1 GM in IV DEXTROSE 5% 50 ML IV SCH ×3 (06:19→21:08)
[2018-07-17] MEDS: HYDROcodone/APAP 7.5/325MG 1 TAB TABLET PO SCH ×2 (06:19→17:28)
[2018-07-17] MEDS ORDERED: POTASSIUM CHLORIDE 20 MEQ TABLET.ER. PO ONE (06:30)
[2018-07-17 07:00] VITALS: BP 90/59
[2018-07-17] MEDS ORDERED: POTASSIUM CHLORIDE 20 MEQ TABLET.ER. PO SCH (08:00)
[2018-07-17] MEDS: PREGABALIN 75 MG CAPSULE PO SCH ×3 (08:18→21:06)
[2018-07-17] MEDS: ASPIRIN CHEWABLE 81 MG TABLET. PO SCH (08:19)
[2018-07-17] MEDS: APIXABAN 5 MG TABLET. PO SCH ×2 (08:19→21:07)
[2018-07-17] MEDS: metOLazone 2.5 MG TABLET PO SCH (08:20)
[2018-07-17] MEDS: DICLOFENAC SODIUM 1% TOPICAL GEL 100GM TUBE. TP SCH ×4 (08:21→21:07)
[2018-07-17] MEDS: FLUTICASONE 50MCG/NASAL SPRAY 16GM BOTTLE. NS SCH ×2 (08:21→21:08)
[2018-07-17] MEDS: LISINOPRIL 5 MG TABLET. PO SCH (08:22)
[2018-07-17] MEDS: METOPROLOL TART IMMED RELEASE 25 MG TABLET. PO SCH ×2 (08:23→21:07)
[2018-07-17] MEDS: FUROSEMIDE 40 MG TABLET. PO SCH ×2 (08:23→11:38)
[2018-07-17] MEDS: POTASSIUM CHLORIDE 20 MEQ TABLET.ER. PO SCH ×3 (08:23→21:04)
[2018-07-17] MEDS: HYDROCORTISONE 2.5% RECTAL CREAM 30GM TUBE. RC SCH ×2 (08:24→21:07)
[2018-07-17] MEDS: LISDEXAMFETAMINE DIMESYLATE 30 MG PO SCH (08:24)
--- NOTE | 2018-07-17 09:31 | RAD ---
MR#: [id number] Date of Study: 07/16/2018 Ordering Physician: DREW CAR, Referring Physician: MANDEEP KINGSTON, Tech: GAGAN Doss, RDMS, RTR APPROVED REPORT Patient Location: IN-PATIENT Indications Rest Pain: PAD Risk Factors Hypertension Obesity VELOCITY AND DOPPLER WAVEFORM ANALYSIS RIGHT cm/secWaveformSeverity LEFT cm/secWaveform Severity pCFA 135.5BiphasicpCFA 165.8Triphasic Prof Fem Art. 181.2Prof Fem Art. 169.7 Fem Art Prox. 76.0BiphasicFem Art Prox. 163.2Triphasic Fem Art Mid. 95.7BiphasicFem Art Mid. 88.8Triphasic Fem Art Dist. 71.6BiphasicFem Art Dist. 95.4Triphasic Pop Art(Fossa) 79.1BiphasicPop Art(AK) 56.8Triphasic MACHINE INSTALLER Mid.MACHINE INSTALLER Mid.84.3Monophasic MACHINE INSTALLER Dist. 100.9BiphasicPTA Dist. Per Art Mid. Per Art Mid. 57.0Monophasic Per Art Dist.45.3BiphasicPer Art Dist. MARISOL Dist. 57.4MonophasicATA Dist. 38.7Monophasic DPA 54MonophasicDPA 41Monophasic Findings Grayscale images of the bilateral lower extremity arterial vessels reveal diffuse catheters chronic p laque of moderate nature. On the right spectral waveforms are mostly biphasic above the knee. Velocities are elevated in the mi d superficial femoral artery suggestive greater than 50% stenosis. There are monophasic waveforms bel ow-the-knee but there is patency of all 3 vessels. The velocities are slightly blunted but no focal h igh-grade obstruction is noted. On the left there are elevated velocities in the common femoral artery suggestive of less than 50% st enosis. Mostly biphasic waveforms are noted above the knee. Below the knee there are monophasic wavef orms with blunted velocities but no focal obstruction is noted. Incidental note is made of a right-sided Sams's cyst measuring 5.3 x 5.0 x 2.2 cm. Critical Notification Critical Value: No <Conclusion> 1. Probable greater than 50% stenosis involving the right mid SFA. 2. Patent 3 vessel runoff below the knees bilaterally. 3. Diffuse atherosclerotic disease. 4. Incidental note is made of a right-sided Sams's cyst. Signed by : Matt Younger, Electronically Approved : 07/17/2018 09:31:48
--- NOTE | 2018-07-17 09:49 | PDOC ---
PROGRESS NOTES Chief Complaint Chief Complaint Cellulitis legs Acute on chronic lymphedema CHF (congestive heart failure) HX a fib and VAnve insufficiencies morbid obesity BMI 45 ckd History of Present Illness History of Present Illness He has been going very frequently and was unable to sleep because of urinating every 15 minutes But he is better in terms of swelling and no more SOA Still critically low potassium 2.9 Creatinine holding 1.4 Cardiology and renal both on board Renal recommends diuretic per primary or cardiology Plan: Metolazone 2.5 once a day here He was taking 5 mg once a day at home After heavy discussion with timing and convenience, we will make the Lasix 80 once a day instead of 40 by mouth twice a day so that he would avoid going to the bathroom during the nights Would continue metolazone Would increase KCl to 40 twice a day from 40 once a day since this is day #2 of critical hypokalemia PT OT-but so far no PT needs or ambulating pretty well Discussed with him and RN-significant time in the room Vitals Vitals Vital Signs Date Time Temp Pulse Resp B/P (MAP) Pulse Ox O2 Delivery O2 Flow Rate FiO2 07/17/18 08:26 Room Air 07/17/18 08:23 87 90/59 07/17/18 07:00 98.1 20 97 98.1 Physical Exam General: Alert, Oriented X3, Cooperative, No acute distress Heart: Regular rate Lungs: Crackles, Other (decrease breath sounds on the basis) Abdomen: Normal bowel sounds, Soft, No tenderness Extremities: No cyanosis, Other (4+ bilateral LE pitting edema erythema to right calf) Skin: No rashes, No breakdown, Other (RLE ERYTHEMA) Labs LABS Laboratory Tests Test 07/16/18 16:30 07/16/18 16:38 07/16/18 17:55 07/16/18 21:10 Urine Collection Type Unknown Urine Color Yellow Urine Clarity Clear Urine pH 6.5 Urine Specific [place] 1.015 Urine Protein Negative mg/dL (NEG-TRACE) Urine Glucose (UA) Negative mg/dL (NEG) Urine Ketones (Stick) Negative mg/dL (NEG) Urine Blood Negative (NEG) Urine Nitrite Negative (NEG) Urine Bilirubin Negative (NEG) Urine Urobilinogen Dipstick 0.2 mg/dL (0.2 mg/dL) Urine Leukocyte Esterase Negative (NEG) Urine RBC Occ /HPF (0-2) Urine WBC Occ /HPF (0-4) Urine Squamous Epithelial Cells Few /LPF Urine Bacteria 0 /HPF (0-FEW) Urine Hyaline Casts Few /HPF Glucose (Fingerstick) 107 mg/dL (70-99) 94 mg/dL (70-99) Potassium Level 3.1 mmol/L (3.5-5.1) Test 07/17/18 04:00 07/17/18 07:33 Sodium Level 139 mmol/L (136-145) Potassium Level 2.9 mmol/L (3.5-5.1) Chloride Level 101 mmol/L (98-107) Carbon Dioxide Level 30 mmol/L (21-32) Anion Gap 8 (6-14) Blood Urea Nitrogen 28 mg/dL (8-26) Creatinine 1.4 mg/dL (0.7-1.3) Estimated GFR (Cockcroft-Gault) 49.4 Glucose Level 114 mg/dL (70-99) Calcium Level 9.1 mg/dL (8.5-10.1) Magnesium Level 1.8 mg/dL (1.8-2.4) Glucose (Fingerstick) 102 mg/dL (70-99) Review of Systems Review of Systems A 14 point ROS was completed with the following noted as positive: Other systems reviewed and negative. \CONSTITUTIONAL: No fever or chills EYES: No recent changes SKIN: No rash or itching CARDIOVASCULAR: No chest pain, syncope, palpitations, or edema RESPIRATORY: No SOB or cough GASTROINTESTINAL: No nausea, vomiting or abdominal pain NEUROLOGICAL: No headaches or weakness ENDOCRINE: No cold or heat intolerance GENITOURINARY: No urgency or frequency of urination MUSCULOSKELETAL: No back pain or joint pain LYMPHATICS: No enlarged lymph nodes PSYCHIATRIC: No anxiety or depression Assessment and Plan Assessmemt and Plan Problems Medical Problems: (1) Cellulitis Status: Acute (2) CHF (congestive heart failure) Status: Acute Comment Review of Relevant I have reviewed the following items benedict (where applicable) has been applied. Labs Laboratory Tests Test 07/15/18 15:52 07/15/18 20:44 07/16/18 04:30 07/16/18 07:25 White Blood Count 6.0 x10^3/uL (4.0-11.0) 4.1 x10^3/uL (4.0-11.0) Red Blood Count 2.88 x10^6/uL (4.30-5.70) 2.72 x10^6/uL (4.30-5.70) Hemoglobin 9.3 g/dL (13.0-17.5) 8.6 g/dL (13.0-17.5) Hematocrit 26.9 % (39.0-53.0) 25.6 % (39.0-53.0) Mean Corpuscular Volume 94 fL (79-100) 94 fL (79-100) Mean Corpuscular Hemoglobin 33 pg (25-35) 32 pg (25-35) Mean Corpuscular Hemoglobin Concent 35 g/dL (31-37) 34 g/dL (31-37) Red Cell Distribution Width 15.8 % (11.5-14.5) 15.6 % (11.5-14.5) Platelet Count 144 x10^3/uL (140-400) 117 x10^3/uL (140-400) Neutrophils (%) (Auto) 70 % (31-73) 70 % (31-73) Lymphocytes (%) (Auto) 17 % (24-48) 19 % (24-48) Monocytes (%) (Auto) 10 % (0-9) 10 % (0-9) Eosinophils (%) (Auto) 1 % (0-3) 2 % (0-3) Basophils (%) (Auto) 1 % (0-3) 1 % (0-3) Neutrophils # (Auto) 4.2 x10^3uL (1.8-7.7) 2.9 x10^3uL (1.8-7.7) Lymphocytes # (Auto) 1.0 x10^3/uL (1.0-4.8) 0.8 x10^3/uL (1.0-4.8) Monocytes # (Auto) 0.6 x10^3/uL (0.0-1.1) 0.4 x10^3/uL (0.0-1.1) Eosinophils # (Auto) 0.1 x10^3/uL (0.0-0.7) 0.1 x10^3/uL (0.0-0.7) Basophils # (Auto) 0.1 x10^3/uL (0.0-0.2) 0.0 x10^3/uL (0.0-0.2) Sodium Level 139 mmol/L (136-145) 142 mmol/L (136-145) Potassium Level 3.0 mmol/L (3.5-5.1) 2.7 mmol/L (3.5-5.1) Chloride Level 101 mmol/L (98-107) 103 mmol/L (98-107) Carbon Dioxide Level 26 mmol/L (21-32) 27 mmol/L (21-32) Anion Gap 12 (6-14) 12 (6-14) Blood Urea Nitrogen 37 mg/dL (8-26) 33 mg/dL (8-26) Creatinine 1.6 mg/dL (0.7-1.3) 1.5 mg/dL (0.7-1.3) Estimated GFR (Cockcroft-Gault) 42.3 45.6 BUN/Creatinine Ratio 23 (6-20) Glucose Level 114 mg/dL (70-99) 110 mg/dL (70-99) Lactic Acid Level 2.0 mmol/L (0.4-2.0) Calcium Level 9.3 mg/dL (8.5-10.1) 8.5 mg/dL (8.5-10.1) Total Bilirubin 0.7 mg/dL (0.2-1.0) Aspartate Amino Transf (AST/SGOT) 26 U/L (15-37) Alanine Aminotransferase (ALT/SGPT) 22 U/L (16-63) Alkaline Phosphatase 42 U/L (46-116) Troponin I Quantitative < 0.017 ng/mL (0.000-0.055) MW-Flr-K-Type Natriuretic Peptide 1163 pg/mL (0-449) Total Protein 7.1 g/dL (6.4-8.2) Albumin 3.3 g/dL (3.4-5.0) 3.1 g/dL (3.4-5.0) Albumin/Globulin Ratio 0.9 (1.0-1.7) Glucose (Fingerstick) 109 mg/dL (70-99) 108 mg/dL (70-99) Erythrocyte Sedimentation Rate 25 (0-15) Prothrombin Time 18.5 SEC (11.7-14.0) Prothromb Time International Ratio 1.6 (0.8-1.1) Phosphorus Level 3.3 mg/dL (2.6-4.7) Triglycerides Level 45 mg/dL (0-150) Cholesterol Level 98 mg/dL (0-200) LDL Cholesterol, Calculated 50 mg/dL (0-100) VLDL Cholesterol, Calculated 9 mg/dL (0-40) Non-HDL Cholesterol Calculated 59 mg/dL (0-129) HDL Cholesterol 39 mg/dL (40-60) Cholesterol/HDL Ratio 2.5 Test 07/16/18 16:30 07/16/18 16:38 07/16/18 17:55 07/16/18 21:10 Urine Collection Type Unknown Urine Color Yellow Urine Clarity Clear Urine pH 6.5 Urine Specific [place] 1.015 Urine Protein Negative mg/dL (NEG-TRACE) Urine Glucose (UA) Negative mg/dL (NEG) Urine Ketones (Stick) Negative mg/dL (NEG) Urine Blood Negative (NEG) Urine Nitrite Negative (NEG) Urine Bilirubin Negative (NEG) Urine Urobilinogen Dipstick 0.2 mg/dL (0.2 mg/dL) Urine Leukocyte Esterase Negative (NEG) Urine RBC Occ /HPF (0-2) Urine WBC Occ /HPF (0-4) Urine Squamous Epithelial Cells Few /LPF Urine Bacteria 0 /HPF (0-FEW) Urine Hyaline Casts Few /HPF Glucose (Fingerstick) 107 mg/dL (70-99) 94 mg/dL (70-99) Potassium Level 3.1 mmol/L (3.5-5.1) Test 07/17/18 04:00 07/17/18 07:33 Sodium Level 139 mmol/L (136-145) Potassium Level 2.9 mmol/L (3.5-5.1) Chloride Level 101 mmol/L (98-107) Carbon Dioxide Level 30 mmol/L (21-32) Anion Gap 8 (6-14) Blood Urea Nitrogen 28 mg/dL (8-26) Creatinine 1.4 mg/dL (0.7-1.3) Estimated GFR (Cockcroft-Gault) 49.4 Glucose Level 114 mg/dL (70-99) Calcium Level 9.1 mg/dL (8.5-10.1) Magnesium Level 1.8 mg/dL (1.8-2.4) Glucose (Fingerstick) 102 mg/dL (70-99) Laboratory Tests Test 07/16/18 16:30 07/16/18 16:38 07/16/18 17:55 07/16/18 21:10 Urine Collection Type Unknown Urine Color Yellow Urine Clarity Clear Urine pH 6.5 Urine Specific [place] 1.015 Urine Protein Negative mg/dL (NEG-TRACE) Urine Glucose (UA) Negative mg/dL (NEG) Urine Ketones (Stick) Negative mg/dL (NEG) Urine Blood Negative (NEG) Urine Nitrite Negative (NEG) Urine Bilirubin Negative (NEG) Urine Urobilinogen Dipstick 0.2 mg/dL (0.2 mg/dL) Urine Leukocyte Esterase Negative (NEG) Urine RBC Occ /HPF (0-2) Urine WBC Occ /HPF (0-4) Urine Squamous Epithelial Cells Few /LPF Urine Bacteria 0 /HPF (0-FEW) Urine Hyaline Casts Few /HPF Glucose (Fingerstick) 107 mg/dL (70-99) 94 mg/dL (70-99) Potassium Level 3.1 mmol/L (3.5-5.1) Test 07/17/18 04:00 07/17/18 07:33 Sodium Level 139 mmol/L (136-145) Potassium Level 2.9 mmol/L (3.5-5.1) Chloride Level 101 mmol/L (98-107) Carbon Dioxide Level 30 mmol/L (21-32) Anion Gap 8 (6-14) Blood Urea Nitrogen 28 mg/dL (8-26) Creatinine 1.4 mg/dL (0.7-1.3) Estimated GFR (Cockcroft-Gault) 49.4 Glucose Level 114 mg/dL (70-99) Calcium Level 9.1 mg/dL (8.5-10.1) Magnesium Level 1.8 mg/dL (1.8-2.4) Glucose (Fingerstick) 102 mg/dL (70-99) Medications Current Medications Vancomycin HCl 250 ml @ 250 mls/hr 1X ONCE IV ; Start 07/15/18 at 16:00; Stop 07/15/18 at 16:59; Status Cancel Piperacillin Sod/ Tazobactam Sod 3.375 gm/Sodium Chloride 50 ml @ 100 mls/hr 1X ONCE IV Last administered on 07/15/18at 16:54; Start 07/15/18 at 16:00; Stop 07/15/18 at 16:29; Status DC Vancomycin HCl 2 gm/Sodium Chloride 500 ml @ 250 mls/hr 1X ONCE IV Last administered on 07/15/18at 17:45; Start 07/15/18 at 16:30; Stop 07/15/18 at 18 :29; Status DC Acetaminophen (Tylenol) 1,000 mg 1X ONCE PO Last administered on 07/15/18at 16 :57; Start 07/15/18 at 16:30; Stop 07/15/18 at 16:31; Status DC Sodium Chloride 500 ml @ 500 mls/hr 1X ONCE IV Last administered on at 17:58; Start 07/15/18 at 18:30; Stop 07/15/18 at 19:29; Status DC Sodium Chloride 500 ml @ 500 mls/hr 1X ONCE IV ; Start 07/15/18 at 18:00; Stop 07/15/18 at 18:59; Status DC Apixaban (Eliquis) 5 mg BID PO Last administered on 07/17/18 08:19; Start at 21:00 Aspirin (Children'S Aspirin) 81 mg DAILY PO Last administered on 07/17/18 08: 19; Start 07/16/18 at 09:00 Diclofenac Sodium (Voltaren) 1 negar QID TP Last administered on 07/17/18 08:21 ; Start 07/15/18 at 21:00 Fluticasone Propionate (Flonase) 2 spray BID NS Last administered on 08:24; Start 07/15/18 at 21:00 Acetaminophen/ Hydrocodone Bitart (Lortab 7.5/325) 1 tab [id number] PO Last administered on 07/17/18 06:19; Start 07/16/18 at 06:00 Hydrocortisone (Proctosol-Hc) 1 negar BID RC Last administered on 07/17/18 08: 24; Start 07/15/18 at 21:00 Metoprolol Tartrate (Lopressor) 25 mg BID PO Last administered on 07/16/18at 21 :14; Start 07/15/18 at 21:00 Potassium Chloride (Klor-Con) 20 meq DAILY PO Last administered on 10/24/18at 08:23; Start 07/16/18 at 09:00 Tramadol HCl (Ultram) 50 mg PRN TID PRN PO SEVERE PAIN; Start 07/15/18 at 20: 00 Non-Formulary Medication (Acetaminophen/ Chlorpheniramine (Coricidin Hbp Tablet) ) 1 each HS PO ; Start 07/15/18 at 21:00; Status UNV Budesonide (Pulmicort) 0.5 mg RTBID NEB Last administered on 07/16/18at 00:05; Start 07/15/18 at 20:30; Stop 07/16/18 at 16:21; Status DC Non-Formulary Medication (Celecoxib ) 200 mg DAILY PO ; Start 07/16/18 at 09:00 ; Stop 07/16/18 at 09:00; Status DC Non-Formulary Medication (Diclofenac Epolamine (Flector)) 1.5 patch DAILY TOP ; Start 07/16/18 at 09:00; Status UNV Guaifenesin (Mucinex) 1,200 mg DAILY PO Last administered on 07/17/18at 08:19; Start 07/16/18 at 09:00 Levothyroxine Sodium (Synthroid) 25 mcg DAILY06 PO Last administered on at 06:19; Start 07/16/18 at 06:00 Non-Formulary Medication (Lisdexamfetamine Dimesylate (Vyvanse)) 30 mg DAILY PO ; Start 07/16/18 at 09:00; Status UNV Lisinopril (Prinivil) 2.5 mg DAILY PO ; Start 07/16/18 at 09:00 Pramipexole Dihydrochloride (miraPEX) 0.125 mg QHS PO Last administered on at 21:15; Start 07/15/18 at 21:00 Pregabalin (Lyrica) 150 mg TID PO Last administered on 07/17/18at 08:18; Start 07/15/18 at 21:00 Simvastatin (Zocor) 40 mg QHS PO Last administered on 07/16/18at 21:14; Start 07/15/18 at 21:00 Albuterol/ Ipratropium (Duoneb) 3 ml RTQID NEB Last administered on 07/16/18at 00:05; Start 07/15/18 at 20:00; Stop 07/16/18 at 16:21; Status DC Acetaminophen/ Hydrocodone Bitart (Lortab 7.5/325) 1 tab 1X ONCE PO Last administered on 07/15/18at 22:53; Start 07/15/18 at 22:30; Stop 07/15/18 at 22 :31; Status DC Potassium Chloride (Klor-Con) 40 meq 1X ONCE PO Last administered on at 07:20; Start 07/16/18 at 06:45; Stop 07/16/18 at 06:58; Status DC Acetaminophen (Tylenol) 500 mg PRN Q6HRS PRN PO MILD PAIN / TEMP Last administered on 07/16/18at 16:43; Start 07/16/18 at 08:45 Acetaminophen/ Codeine Phosphate (Tylenol #3) 1 tab PRN Q6HRS PRN PO MODERATE PAIN; Start 07/16/18 at 08:45 Ondansetron HCl (Zofran) 4 mg PRN Q6HRS PRN IV NAUSEA/VOMITING; Start at 08:45 Ondansetron HCl (Zofran Odt) 4 mg PRN Q6HRS PRN PO NAUSEA/VOMITING; Start at 08:45 Potassium Chloride (Klor-Con) 40 meq 1X ONCE PO ; Start 07/16/18 at 09:00; Stop 07/16/18 at 09:05; Status DC Potassium Chloride (Klor-Con) 20 meq 1X ONCE PO ; Start 07/16/18 at 09:00; Stop 07/16/18 at 09:05; Status DC Potassium Chloride (Klor-Con) 40 meq DAILYWBKFT PO ; Start 07/17/18 at 08:00; Stop 07/17/18 at 08:21; Status DC Cefazolin Sodium 1 gm/Dextrose 50 ml @ 100 mls/hr Q8HRS IV Last administered on 07/17/18at 06:19; Start 07/16/18 at 11:30 Metolazone (Zaroxolyn) 2.5 mg DAILY PO Last administered on 07/17/18at 08:20; Start 07/16/18 at 14:00 Furosemide (Lasix) 40 mg BID PO Last administered on 07/16/18at 21:22; Start 07/16/18 at 14:00 Info (Anti-Coagulation Monitoring By Pharmacy) 1 each PRN DAILY PRN MC SEE COMMENTS Last administered on 07/16/18at 16:24; Start 07/16/18 at 15:30 Budesonide (Pulmicort) 0.5 mg PRN BID PRN NEB WHEEZING; Start 07/16/18 at 16: 30 Albuterol/ Ipratropium (Duoneb) 3 ml PRN QID PRN NEB WHEEZING; Start 07/16/18 at 16:30 Potassium Chloride (Klor-Con) 40 meq 1X ONCE PO Last administered on at 06:19; Start 07/17/18 at 06:30; Stop 07/17/18 at 06:31; Status DC Potassium Chloride (Klor-Con) 40 meq BID PO ; Start 07/17/18 at 09:00 Active Scripts Active Reported Potassium Chloride 10 Meq Tablet.er 10 Meq PO TID Lasix (Furosemide) 20 Mg Tablet 20 Mg PO DAILY Meclizine Hcl 25 Mg Tablet 1 Tab PO BID Metolazone 5 Mg Tablet 5 Mg PO DAILY Metoprolol Tartrate 25 Mg Tablet 1 Tab PO BID Coricidin Hbp Tablet (Acetaminophen/Chlorpheniramine) 1 Each Tablet 1 Each PO HS Aspirin 81 Mg Tab.chew 1 Tab PO DAILY Diclofenac Sodium 100 Gm Gel..gram. 1 Patch TOP QID Spiriva (Tiotropium [place]) 18 Mcg Cap.w.dev 1 Puff INH DAILY Symbicort 160-4.5 Mcg Inhaler (Budesonide/Formoterol Fumarate) 10.2 Gm Hfa.aer.ad 2 Puff INH BID Fluticasone Propionate Nasal [place] (Fluticasone Propionate) 16 Gm [place].susp 2 Sprays NS BID Lyrica (Pregabalin) 150 Mg Capsule 150 Mg PO TID Pramipexole Dihydrochloride (Pramipexole Di-Hcl) 0.125 Mg Tablet 0.125 Mg PO HS Levothyroxine Sodium 25 Mcg Tablet 25 Mcg PO DAILY07 Modafinil 100 Mg Tablet 100 Mg PO BID Lisinopril 2.5 Mg Tablet 2.5 Mg PO DAILY Simvastatin 40 Mg Tablet 40 Mg PO HS Celecoxib 200 Mg Capsule 200 Mg PO DAILY Klor-Con 10 (Potassium Chloride) 10 Meq Tablet.er 20 Meq PO DAILY Proctosol-Hc (Hydrocortisone) 28.35 Gm Cream..g. 1 Negar RC BID Furosemide 40 Mg Tablet 40 Mg PO BID Flector (Diclofenac Epolamine) 1 Each Patch.td12 1.5 Patch TOP DAILY Eliquis (Apixaban) 5 Mg Tablet 5 Mg PO BID Vyvanse (Lisdexamfetamine Dimesylate) 30 Mg Capsule 30 Mg PO DAILY Hydrocodone-Apap 7.5-325 (Hydrocodone Bit/Acetaminophen) 1 Each Tablet 1 Tab PO BID66 Vitals/I & O Vital Sign - Last 24 Hours 07/16/18 07/16/18 07/16/18 07/16/18 11:00 15:00 17:49 19:00 Temp 98.0 98.0 99.2 98.0 98.0 99.2 Pulse 97 97 96 Resp 20 20 20 B/P (MAP) 103/57 (72) 129/73 (91) 120/57 (78) Pulse Ox 93 97 92 O2 Delivery Room Air Room Air Room Air Room Air 07/16/18 07/16/18 07/16/18 07/17/18 20:00 21:14 23:00 03:00 Temp 97.7 98.9 97.7 98.9 Pulse 96 74 79 Resp 20 20 B/P (MAP) 120/57 100/47 (64) 102/55 (71) Pulse Ox 94 95 O2 Delivery Room Air BiPAP/CPAP Room Air 07/17/18 07/17/18 07/17/18 07/17/18 06:19 07:00 08:22 08:23 Temp 98.1 98.1 Pulse 87 87 87 Resp 20 20 B/P (MAP) 90/59 (69) 90/59 90/59 Pulse Ox 97 O2 Delivery Room Air Room Air 07/17/18 08:26 O2 Delivery Room Air Intake and Output 07/16/18 07/16/18 07/17/18 15:00 23:00 07:00 Intake Total 600 ml 1120 ml 300 ml Output Total 1300 ml Balance 600 ml 1120 ml -1000 ml MALA FORTE MD Jul 17, 2018 09:49
[2018-07-17] MEDS ORDERED: MAGNESIUM HYDROXIDE 2,400 MG/30 ML ORAL.SUSP. PO PRN (10:15)
[2018-07-17] MEDS ORDERED: POLYETHYLENE GLYCOL 3350 17 GM PACKET. PO PRN (10:15)
[2018-07-17 11:00] VITALS: BP 108/68
--- NOTE | 2018-07-17 11:15 | PDOC ---
Infectious Disease Note Subjective Subjective feeling better, ROS ROS no n/v/d/sob/fever Vital Sign Vital Signs Vital Signs Date Time Temp Pulse Resp B/P (MAP) Pulse Ox O2 Delivery O2 Flow Rate FiO2 07/17/18 08:26 Room Air 07/17/18 08:23 87 90/59 07/17/18 07:00 98.1 20 97 98.1 Physical Exam PHYSICAL EXAM GENERAL: Alert, oriented gentleman, not in any distress. VITAL SIGNS: Stable HEENT: Anicteric. NECK: Supple, no JVP, no lymphadenopathy. LUNGS: Clear. HEART: S1, S2 regular. ABDOMEN: Benign. EXTREMITIES: Bilateral about 2-3+ pitting edema present. The patient does have venous insufficiency changes present. SKIN: Does have stasis dermatitis, but he also has acute cellulitis on the right lateral leg.. Rest of the skin examination unremarkable. NEUROLOGIC: The patient is neurologically intact. Labs Lab Laboratory Tests Test 07/16/18 16:30 07/16/18 16:38 07/16/18 17:55 07/16/18 21:10 Urine Collection Type Unknown Urine Color Yellow Urine Clarity Clear Urine pH 6.5 Urine Specific [place] 1.015 Urine Protein Negative mg/dL (NEG-TRACE) Urine Glucose (UA) Negative mg/dL (NEG) Urine Ketones (Stick) Negative mg/dL (NEG) Urine Blood Negative (NEG) Urine Nitrite Negative (NEG) Urine Bilirubin Negative (NEG) Urine Urobilinogen Dipstick 0.2 mg/dL (0.2 mg/dL) Urine Leukocyte Esterase Negative (NEG) Urine RBC Occ /HPF (0-2) Urine WBC Occ /HPF (0-4) Urine Squamous Epithelial Cells Few /LPF Urine Bacteria 0 /HPF (0-FEW) Urine Hyaline Casts Few /HPF Glucose (Fingerstick) 107 mg/dL (70-99) 94 mg/dL (70-99) Potassium Level 3.1 mmol/L (3.5-5.1) Test 07/17/18 04:00 07/17/18 07:33 Sodium Level 139 mmol/L (136-145) Potassium Level 2.9 mmol/L (3.5-5.1) Chloride Level 101 mmol/L (98-107) Carbon Dioxide Level 30 mmol/L (21-32) Anion Gap 8 (6-14) Blood Urea Nitrogen 28 mg/dL (8-26) Creatinine 1.4 mg/dL (0.7-1.3) Estimated GFR (Cockcroft-Gault) 49.4 Glucose Level 114 mg/dL (70-99) Calcium Level 9.1 mg/dL (8.5-10.1) Magnesium Level 1.8 mg/dL (1.8-2.4) Glucose (Fingerstick) 102 mg/dL (70-99) Objective Assessment Rt leg cellulitis Rt leg chronic stasis dermatitis Leg venous insufficiency Fever CHF Obesity Renal insufficiency Plan Plan of Care cefazolin leg elevation( not doing much ) supportive care ELYSSA GILLIS MD Jul 17, 2018 11:15
[2018-07-17] MEDS: DOCUSATE SODIUM 100 MG CAPSULE. PO SCH (11:38)
--- NOTE | 2018-07-17 11:51 | PDOC ---
CARDIO Progress Notes Date and Time Date of Service 07/17/18 Time of Evaluation 1110 Subjective Subjective: No Chest Pain, No shortness of breath, Other (swelling/redness improved.) Vitals Vitals Vital Signs Date Time Temp Pulse Resp B/P (MAP) Pulse Ox O2 Delivery O2 Flow Rate FiO2 07/17/18 08:26 Room Air 07/17/18 08:23 87 90/59 07/17/18 07:00 98.1 20 97 98.1 Weight Weight [ ] Input and Output Intake and Output Intake and Output 07/17/18 07:00 Intake Total 2020 ml Output Total 1300 ml Balance 720 ml Intake Oral 2020 ml Output Urine Total 1300 ml Laboratory Labs Laboratory Tests Test 07/16/18 16:30 07/16/18 16:38 07/16/18 17:55 07/16/18 21:10 Urine Collection Type Unknown Urine Color Yellow Urine Clarity Clear Urine pH 6.5 Urine Specific [place] 1.015 Urine Protein Negative mg/dL (NEG-TRACE) Urine Glucose (UA) Negative mg/dL (NEG) Urine Ketones (Stick) Negative mg/dL (NEG) Urine Blood Negative (NEG) Urine Nitrite Negative (NEG) Urine Bilirubin Negative (NEG) Urine Urobilinogen Dipstick 0.2 mg/dL (0.2 mg/dL) Urine Leukocyte Esterase Negative (NEG) Urine RBC Occ /HPF (0-2) Urine WBC Occ /HPF (0-4) Urine Squamous Epithelial Cells Few /LPF Urine Bacteria 0 /HPF (0-FEW) Urine Hyaline Casts Few /HPF Glucose (Fingerstick) 107 mg/dL (70-99) 94 mg/dL (70-99) Potassium Level 3.1 mmol/L (3.5-5.1) Test 07/17/18 04:00 07/17/18 07:33 Sodium Level 139 mmol/L (136-145) Potassium Level 2.9 mmol/L (3.5-5.1) Chloride Level 101 mmol/L (98-107) Carbon Dioxide Level 30 mmol/L (21-32) Anion Gap 8 (6-14) Blood Urea Nitrogen 28 mg/dL (8-26) Creatinine 1.4 mg/dL (0.7-1.3) Estimated GFR (Cockcroft-Gault) 49.4 Glucose Level 114 mg/dL (70-99) Calcium Level 9.1 mg/dL (8.5-10.1) Magnesium Level 1.8 mg/dL (1.8-2.4) Glucose (Fingerstick) 102 mg/dL (70-99) Physical Exam HEENT: Neck Supple W Full Motion Chest: Symmetric LUNGS: Clear to Auscultation, Other (diminished bases) Heart: S1S2, irregularly irregular (tele: AFIB with controlled rate) Abdomen: Soft N/T Extremities: Other (RLE erythema. Bilateral LE 2-3+ edema ) Neurology: alert, oriented, follow commands Assessment Assessment 1. RLE cellulitis with chronic lymphedema/venous insufficiency: Multifactorial 2. Chronic diastolic CHF: compensated. Echo showed normal LV systolic function with an EF of 55-60% 4. LEONOR on CKD; resolved. nephrology following 5. Chronic AFIB: rate controlled 6. PAD; LE duplex notable for probable greater than 50% stenosis involving the right mid SFA. 7. Mod AI 8. CAD; past CABG x5, clinically stable 9. HTN: controlled 10. HLP; LDL 50 11. Anemia of chronic disease 12. Hypokalemia; replace. Mg 1.8 Recommendations Secondary prevention measures Continue routine oral diuresis. Metoprolol for rate control Eliquis for stroke prevention Supportive care from a CV perspective. Treatment of cellulitis as per ID Outpatient followup of PAD. RADHA DOUGLAS APRN Jul 17, 2018 11:51
--- NOTE | 2018-07-17 12:06 | PDOC ---
Renal-Progress Notes Subjective Notes Notes NO NEW COMPLAINTS History of Present Illness Hx of present illness STABLE Vitals Vitals Vital Signs Date Time Temp Pulse Resp B/P (MAP) Pulse Ox O2 Delivery O2 Flow Rate FiO2 07/17/18 08:26 Room Air 07/17/18 08:23 87 90/59 07/17/18 07:00 98.1 20 97 98.1 Weight Weight [ ] I.O. Intake and Output Intake and Output 07/17/18 07:00 Intake Total 2020 ml Output Total 1300 ml Balance 720 ml Intake Oral 2020 ml Output Urine Total 1300 ml Labs Labs Laboratory Tests Test 07/16/18 16:30 07/16/18 16:38 07/16/18 17:55 07/16/18 21:10 Urine Collection Type Unknown Urine Color Yellow Urine Clarity Clear Urine pH 6.5 Urine Specific [place] 1.015 Urine Protein Negative mg/dL (NEG-TRACE) Urine Glucose (UA) Negative mg/dL (NEG) Urine Ketones (Stick) Negative mg/dL (NEG) Urine Blood Negative (NEG) Urine Nitrite Negative (NEG) Urine Bilirubin Negative (NEG) Urine Urobilinogen Dipstick 0.2 mg/dL (0.2 mg/dL) Urine Leukocyte Esterase Negative (NEG) Urine RBC Occ /HPF (0-2) Urine WBC Occ /HPF (0-4) Urine Squamous Epithelial Cells Few /LPF Urine Bacteria 0 /HPF (0-FEW) Urine Hyaline Casts Few /HPF Glucose (Fingerstick) 107 mg/dL (70-99) 94 mg/dL (70-99) Potassium Level 3.1 mmol/L (3.5-5.1) Test 07/17/18 04:00 07/17/18 07:33 Sodium Level 139 mmol/L (136-145) Potassium Level 2.9 mmol/L (3.5-5.1) Chloride Level 101 mmol/L (98-107) Carbon Dioxide Level 30 mmol/L (21-32) Anion Gap 8 (6-14) Blood Urea Nitrogen 28 mg/dL (8-26) Creatinine 1.4 mg/dL (0.7-1.3) Estimated GFR (Cockcroft-Gault) 49.4 Glucose Level 114 mg/dL (70-99) Calcium Level 9.1 mg/dL (8.5-10.1) Magnesium Level 1.8 mg/dL (1.8-2.4) Glucose (Fingerstick) 102 mg/dL (70-99) Review of Systems Constitutional: yes: weakness, alert, oriented Ears/Nose/Throat: Yes: no symptom reported Eyes: Yes: no symptom reported Pulmonary: Yes no symptom reported Cardiovascular: Yes edema Gastrointestional: Yes: no symptom reported Genitourinary: Yes: no symptom reported Musculoskeletal: Yes: no symptom reported Skin: Yes lesions Psychiatric/Neurological: Yes: no symptom reported Physical Exam General Appearance: no apparent distress Skin: warm Respiratory: decreased breath sounds Heart: S1S2 Abdomen: soft, bowel sounds present Extremities: pulses present, edema Neurology: alert, oriented Musculoskeletal: Other Assessment Assessment IMP EDEMA LE CELLULITIS HYPOKALEMIA CKD STAGE 2-CR OF 1.3-1.5 LEONOR-RESOLVED PLAN REPLACE K, CHECK MG CONT DIURETICS CONT CARLY-I ABX WILL FOLLOW NATE KIM MD Jul 17, 2018 12:06
[2018-07-17 15:00] VITALS: BP 106/63
[2018-07-17] MEDS: ANTI-COAG MONITOR BY PHARMACY. MC PRN (15:38)
[2018-07-17] MEDS: ACETAMINOPHEN 500 MG TABLET PO PRN (15:54)
[2018-07-17 19:00] VITALS: BP 108/68
[2018-07-17] MEDS: PRAMIPEXOLE 0.25 MG TABLET. PO SCH (21:04)
[2018-07-17] MEDS: SIMVASTATIN 40 MG TABLET. PO SCH (21:05)
[2018-07-17 23:00] VITALS: BP 99/57
[2018-07-18 02:51] VITALS: BP 106/64
[2018-07-18] MEDS: LEVOTHYROXINE 25 MCG TABLET. PO SCH (06:30)
[2018-07-18] MEDS: HYDROcodone/APAP 7.5/325MG 1 TAB TABLET PO SCH (06:30)
[2018-07-18] MEDS: ceFAZolin SODIUM 1 GM in IV DEXTROSE 5% 50 ML IV SCH (06:30)
[2018-07-18 07:00] VITALS: BP 94/59
[2018-07-18 08:31] LABS: CREATININE 1.4 mg/dL (0.7-1.3); GFR 49.4; MAGNESIUM 1.8 mg/dL (1.8-2.4)
[2018-07-18 08:39] LABS: POTASSIUM 2.8 mmol/L (3.5-5.1)
[2018-07-18] MEDS: LISINOPRIL 5 MG TABLET. PO SCH ×2 (09:00→10:25)
[2018-07-18] MEDS ORDERED: POTASSIUM CHLORIDE 20 MEQ TABLET.ER. PO ONE (09:00)
[2018-07-18] MEDS: FLUTICASONE 50MCG/NASAL SPRAY 16GM BOTTLE. NS SCH (09:00)
[2018-07-18] MEDS ORDERED: POTASSIUM CHLORIDE 20 MEQ TABLET.ER. PO SCH ×2 (09:00→12:00)
[2018-07-18] MEDS: METOPROLOL TART IMMED RELEASE 25 MG TABLET. PO SCH ×2 (09:00→10:25)
--- NOTE | 2018-07-18 10:23 | PDOC ---
Infectious Disease Note Subjective Subjective feeling better, ROS ROS no n/v/d/sob Vital Sign Vital Signs Vital Signs Date Time Temp Pulse Resp B/P (MAP) Pulse Ox O2 Delivery O2 Flow Rate FiO2 07/18/18 07:30 Room Air 07/18/18 07:00 98.5 85 20 94/59 (71) 94 98.5 Physical Exam PHYSICAL EXAM GENERAL: Alert, oriented gentleman, not in any distress. VITAL SIGNS: Stable HEENT: Anicteric. NECK: Supple, no JVP, no lymphadenopathy. LUNGS: Clear. HEART: S1, S2 regular. ABDOMEN: Benign. EXTREMITIES: Bilateral about 2-3+ pitting edema present. The patient does have venous insufficiency changes present. SKIN: Does have stasis dermatitis, but he also has acute cellulitis on the right lateral leg.. Rest of the skin examination unremarkable.,,, edema and erythema much improved NEUROLOGIC: The patient is neurologically intact. Labs Lab Laboratory Tests Test 07/17/18 11:05 07/18/18 07:34 Glucose (Fingerstick) 98 mg/dL (70-99) Sodium Level 138 mmol/L (136-145) Potassium Level 2.8 mmol/L (3.5-5.1) Chloride Level 100 mmol/L (98-107) Carbon Dioxide Level 28 mmol/L (21-32) Anion Gap 10 (6-14) Blood Urea Nitrogen 27 mg/dL (8-26) Creatinine 1.4 mg/dL (0.7-1.3) Estimated GFR (Cockcroft-Gault) 49.4 Glucose Level 114 mg/dL (70-99) Calcium Level 9.0 mg/dL (8.5-10.1) Magnesium Level 1.8 mg/dL (1.8-2.4) Objective Assessment Rt leg cellulitis Rt leg chronic stasis dermatitis Leg venous insufficiency Fever CHF Obesity Renal insufficiency Plan Plan of Care cefazolin,, change to po keflex x 7 days leg elevation( not doing much ) supportive care ok to d/c from ID stand point ELYSSA GILLIS MD Jul 18, 2018 10:23
[2018-07-18] MEDS: APIXABAN 5 MG TABLET. PO SCH (10:26)
[2018-07-18] MEDS: ASPIRIN CHEWABLE 81 MG TABLET. PO SCH (10:26)
[2018-07-18] MEDS: metOLazone 2.5 MG TABLET PO SCH (10:27)
[2018-07-18] MEDS: PREGABALIN 75 MG CAPSULE PO SCH (10:27)
[2018-07-18] MEDS: FUROSEMIDE 40 MG TABLET. PO SCH (10:27)
[2018-07-18] MEDS: DOCUSATE SODIUM 100 MG CAPSULE. PO SCH (10:27)
[2018-07-18] MEDS: HYDROCORTISONE 2.5% RECTAL CREAM 30GM TUBE. RC SCH (10:28)
[2018-07-18] MEDS: DICLOFENAC SODIUM 1% TOPICAL GEL 100GM TUBE. TP SCH ×2 (10:28→13:00)
[2018-07-18 11:00] VITALS: BP 94/64
[2018-07-18] MEDS ORDERED: POTA20TA4 PO (11:14)
[2018-07-18] MEDS ORDERED: CEPH-264 PO (11:14)
--- NOTE | 2018-07-18 11:17 | PDOC3 ---
Discharge Summary Visit Information Date of Admission: Jul 15, 2018 Date of Discharge: Jul 18, 2018 Admitting Diagnosis Comment: Cellulitis legs Acute on chronic lymphedema CHF (congestive heart failure) HX a fib and VAlve insufficiencies morbid obesity BMI 45 ckd Critical hypokalemia sec to diuretics Final Diagnosis Problems Medical Problems: (1) Cellulitis Status: Acute (2) CHF (congestive heart failure) Status: Acute Brief Hospital Course Allergies Allergies Coded Allergies Type Severity Reaction Last Updated Verified fentanyl Allergy Intermediate 04/10/18 Yes oxymorphone Allergy Intermediate 04/10/18 Yes Vital Signs Vital Signs Date Time Temp Pulse Resp B/P (MAP) Pulse Ox O2 Delivery O2 Flow Rate FiO2 07/18/18 09:00 85 94/59 07/18/18 07:30 Room Air 07/18/18 07:00 98.5 20 94 98.5 Lab Results Laboratory Tests Test 07/16/18 16:30 07/16/18 16:38 07/16/18 17:55 07/16/18 21:10 Urine Collection Type Unknown Urine Color Yellow Urine Clarity Clear Urine pH 6.5 Urine Specific [place] 1.015 Urine Protein Negative mg/dL (NEG-TRACE) Urine Glucose (UA) Negative mg/dL (NEG) Urine Ketones (Stick) Negative mg/dL (NEG) Urine Blood Negative (NEG) Urine Nitrite Negative (NEG) Urine Bilirubin Negative (NEG) Urine Urobilinogen Dipstick 0.2 mg/dL (0.2 mg/dL) Urine Leukocyte Esterase Negative (NEG) Urine RBC Occ /HPF (0-2) Urine WBC Occ /HPF (0-4) Urine Squamous Epithelial Cells Few /LPF Urine Bacteria 0 /HPF (0-FEW) Urine Hyaline Casts Few /HPF Glucose (Fingerstick) 107 mg/dL (70-99) 94 mg/dL (70-99) Potassium Level 3.1 mmol/L (3.5-5.1) Test 07/17/18 04:00 07/17/18 07:33 07/17/18 11:05 07/18/18 07:34 Sodium Level 139 mmol/L (136-145) 138 mmol/L (136-145) Potassium Level 2.9 mmol/L (3.5-5.1) 2.8 mmol/L (3.5-5.1) Chloride Level 101 mmol/L (98-107) 100 mmol/L (98-107) Carbon Dioxide Level 30 mmol/L (21-32) 28 mmol/L (21-32) Anion Gap 8 (6-14) 10 (6-14) Blood Urea Nitrogen 28 mg/dL (8-26) 27 mg/dL (8-26) Creatinine 1.4 mg/dL (0.7-1.3) 1.4 mg/dL (0.7-1.3) Estimated GFR (Cockcroft-Gault) 49.4 49.4 Glucose Level 114 mg/dL (70-99) 114 mg/dL (70-99) Calcium Level 9.1 mg/dL (8.5-10.1) 9.0 mg/dL (8.5-10.1) Magnesium Level 1.8 mg/dL (1.8-2.4) 1.8 mg/dL (1.8-2.4) Glucose (Fingerstick) 102 mg/dL (70-99) 98 mg/dL (70-99) Laboratory Tests Test 07/18/18 07:34 Sodium Level 138 mmol/L (136-145) Potassium Level 2.8 mmol/L (3.5-5.1) Chloride Level 100 mmol/L (98-107) Carbon Dioxide Level 28 mmol/L (21-32) Anion Gap 10 (6-14) Blood Urea Nitrogen 27 mg/dL (8-26) Creatinine 1.4 mg/dL (0.7-1.3) Estimated GFR (Cockcroft-Gault) 49.4 Glucose Level 114 mg/dL (70-99) Calcium Level 9.0 mg/dL (8.5-10.1) Magnesium Level 1.8 mg/dL (1.8-2.4) Brief Hospital Course Mr. Lynn is a 77 old male known to Dr. Moore for CHF. Recently increased Lasix to 80 once a day because of leg edema and SOA. We have been doing that here along with metolazone 2.5 mg by mouth daily. He is actually in metolazone 5 mg by mouth daily at home. He has been having good urine output every 15 minutes to the point that he has critical hypokalemia 2.6-2.9 range in the past 3 days. We had to increase KCl to 40 meqs, times a day. Creatinine 1.4. Renal service thinking we might be over diuresing? In any case thoughts of continuing Lasix 80 once a day but maybe to stop metolazone at home Patient to continue Eliquis 5 twice a day with close monitoring of low platelets. If cleared by cardiology and renal today, can DC. On by mouth Keflex for the bilateral lower extremity cellulitis which is rather mild, comanage with ID Consults performed ID, renal, cardiac Procedures performed echocardiogram-good EF 55-60% Rx on chart includes KCl 40 meqs, 3 times a day for 14 days, I'll request repeat BMP and maybe 7 days time, and also to continue warfarin. Also to "okay to continue lisinopril 2.5 once a day. I have also Rx Keflex for 7 days dc 34 mins Discharge Information Condition at Discharge: Improved, Stable Disposition/Orders: D/C to Home Scheduled Acetaminophen/Chlorpheniramine (Coricidin Hbp Tablet) 1 Each Tablet, 1 EACH PO HS, (Reported) Entered as Reported by: JUAN QUACH on 04/07/182120 Last Action: Converted on 07/15/182001 by MNADEEP KINGSTON MD Apixaban (Eliquis) 5 Mg Tablet, 5 MG PO BID, (Reported) Entered as Reported by: JUAN QUACH on 04/07/182024 Last Action: Reviewed on 07/16/18223 by HIRAM DICKERSON Aspirin (Aspirin) 81 Mg Tab.chew, 1 TAB PO DAILY, #90 Ref 3 (Reported) Entered as Reported by: JUAN QUACH on 04/07/182120 Last Action: Continued on 07/15/182001 by MANDEEP KINGSTON MD Budesonide/Formoterol Fumarate (Symbicort 160-4.5 Mcg Inhaler) 10.2 Gm Hfa.aer.ad, 2 PUFF INH BID, (Reported) Entered as Reported by: JUAN QUACH on 04/07/182120 Last Action: Reviewed on 07/16/18223 by HIRAM DICKERSON Celecoxib (Celecoxib) 200 Mg Capsule, 200 MG PO DAILY, (Reported) Entered as Reported by: JUAN QUACH on 04/07/182024 Last Action: Converted on 07/15/182001 by MANDEEP KINGSTON MD Cephalexin (Keflex) 500 Mg Capsule, 1 CAP PO TID, #21 Prescribed by: MALA FORTE on 07/18/184 Diclofenac Epolamine (Flector) 1 Each Patch.td12, 1.5 PATCH TOP DAILY, (Reported ) Entered as Reported by: JUAN QUACH on 04/07/182024 Last Action: Reviewed on 07/16/18223 by HIRAM DICKERSON Diclofenac Sodium (Diclofenac Sodium) 100 Gm Gel..gram., 1 PATCH TOP QID, ( Reported) Entered as Reported by: JUAN QUACH on 04/07/182120 Last Action: Reviewed on 07/16/18223 by HIRAM DICKERSON Fluticasone Propionate (Fluticasone Propionate Nasal [place]) 16 Gm [place].susp, 2 SPRAYS NS BID, (Reported) Entered as Reported by: JUAN QUACH on 04/07/182120 Last Action: Reviewed on 07/16/18223 by HIRAM DICKERSON Furosemide (Furosemide) 40 Mg Tablet, 40 MG PO BID, (Reported) Entered as Reported by: JUAN QUACH on 04/07/182024 Last Action: HELD on 07/15/182001 by MANDEEP KINGSTON MD Furosemide (Lasix) 20 Mg Tablet, 20 MG PO DAILY, (Reported) Entered as Reported by: HIRAM DICKERSON on 07/16/18223 Last Action: New Order on 07/16/18223 by HIRAM DICKERSON Hydrocodone Bit/Acetaminophen (Hydrocodone-Apap 7.5-325 ) 1 Each Tablet, 1 TAB PO BID66, (Reported) Entered as Reported by: JUAN QUACH on 04/07/182024 Last Action: Reviewed on 07/16/18223 by HIRAM DICKERSON Hydrocortisone (Proctosol-Hc) 28.35 Gm Cream..g., 1 JOLIE RC BID, (Reported) Entered as Reported by: JUAN QUACH on 04/07/182024 Last Action: Reviewed on 07/16/18223 by HIRAM DICKERSON Levothyroxine Sodium (Levothyroxine Sodium) 25 Mcg Tablet, 25 MCG PO DAILY07, ( Reported) Entered as Reported by: JUAN QUACH on 04/07/182120 Last Action: Reviewed on 07/16/18223 by HIRAM DICKERSON Lisdexamfetamine Dimesylate (Vyvanse) 30 Mg Capsule, 30 MG PO DAILY, (Reported) Entered as Reported by: JUAN QUACH on 04/07/182024 Last Action: Reviewed on 07/16/18223 by HIRAM DICKERSON Lisinopril (Lisinopril) 2.5 Mg Tablet, 2.5 MG PO DAILY, (Reported) Entered as Reported by: JUAN QUACH on 04/07/182120 Last Action: Reviewed on 07/16/18223 by HIRAM DICKERSON Meclizine Hcl (Meclizine Hcl) 25 Mg Tablet, 1 TAB PO BID, #90 (Reported) Entered as Reported by: HIRAM DICKERSON on 07/16/18223 Last Action: New Order on 07/16/18223 by HIRAM DICKERSON Metolazone (Metolazone) 5 Mg Tablet, 5 MG PO DAILY, #30 Ref 0 (Reported) Entered as Reported by: HIRAM DICKERSON on 07/16/18223 Last Action: New Order on 07/16/18223 by HIRAM DICKERSON Metoprolol Tartrate (Metoprolol Tartrate) 25 Mg Tablet, 1 TAB PO BID, #180 Ref 1 (Reported) Entered as Reported by: MICHELLE CARRASCO on 04/10/181423 Last Action: Reviewed on 07/16/18223 by HIRAM DICKERSON Modafinil (Modafinil) 100 Mg Tablet, 100 MG PO BID, (Reported) Entered as Reported by: JUAN QUACH on 04/07/182120 Last Action: HELD on 07/15/182001 by MANDEEP KINGSTON MD Potassium Chloride (Klor-Con 10) 10 Meq Tablet.er, 20 MEQ PO DAILY, (Reported) Entered as Reported by: JUAN QUACH on 04/07/182024 Last Action: Continued on 07/15/182001 by MANDEEP KINGSTON MD Potassium Chloride (Potassium Chloride) 10 Meq Tablet.er, 10 MEQ PO TID, ( Reported) Entered as Reported by: HIRAM DICKERSON on 07/16/18223 Last Action: New Order on 07/16/18223 by HIRAM DICKERSON Potassium Chloride (Klor-Con M20) 20 Meq Tab.er.prt, 40 MEQ PO TIDWMEALS for 14 Days, #84 Prescribed by: MALA FORTE on 07/18/184 Pramipexole Di-Hcl (Pramipexole Dihydrochloride) 0.125 Mg Tablet, 0.125 MG PO HS , (Reported) Entered as Reported by: JUAN QUACH on 04/07/182120 Last Action: Reviewed on 07/16/18223 by HIRAM DICKERSON Pregabalin (Lyrica) 150 Mg Capsule, 150 MG PO TID, (Reported) Entered as Reported by: JUAN QUACH on 04/07/182120 Last Action: Reviewed on 07/16/18223 by HIRAM DICKERSON Simvastatin (Simvastatin) 40 Mg Tablet, 40 MG PO HS for FOR CHOLESTEROL, #30 Ref 0 (Reported) Entered as Reported by: JUAN QUACH on 04/07/182120 Last Action: Reviewed on 07/16/18223 by HIRAM DICKERSON Tiotropium [place] (Spiriva) 18 Mcg Cap.w.dev, 1 PUFF INH DAILY, (Reported) Entered as Reported by: JUAN QUACH on 04/07/182120 Last Action: Reviewed on 07/16/18223 by MALA TOWNSEND MD Jul 18, 2018 11:17
--- NOTE | 2018-07-18 11:19 | PDOC ---
Renal-Progress Notes Subjective Notes Notes NO NEW COMPLAINTS History of Present Illness Hx of present illness STABLE Vitals Vitals Vital Signs Date Time Temp Pulse Resp B/P (MAP) Pulse Ox O2 Delivery O2 Flow Rate FiO2 07/18/18 09:00 85 94/59 07/18/18 07:30 Room Air 07/18/18 07:00 98.5 20 94 98.5 Weight Weight [ ] I.O. Intake and Output Intake and Output 07/18/18 07:00 Intake Total 630 ml Output Total 3725 ml Balance -3095 ml Intake Oral 480 ml IV Total 150 ml Output Urine Total 3725 ml Labs Labs Laboratory Tests Test 07/18/18 07:34 Sodium Level 138 mmol/L (136-145) Potassium Level 2.8 mmol/L (3.5-5.1) Chloride Level 100 mmol/L (98-107) Carbon Dioxide Level 28 mmol/L (21-32) Anion Gap 10 (6-14) Blood Urea Nitrogen 27 mg/dL (8-26) Creatinine 1.4 mg/dL (0.7-1.3) Estimated GFR (Cockcroft-Gault) 49.4 Glucose Level 114 mg/dL (70-99) Calcium Level 9.0 mg/dL (8.5-10.1) Magnesium Level 1.8 mg/dL (1.8-2.4) Review of Systems Constitutional: yes: weakness, alert, oriented Ears/Nose/Throat: Yes: no symptom reported Eyes: Yes: no symptom reported Pulmonary: Yes no symptom reported Cardiovascular: Yes edema Gastrointestional: Yes: no symptom reported Genitourinary: Yes: no symptom reported Musculoskeletal: Yes: no symptom reported Skin: Yes lesions Psychiatric/Neurological: Yes: no symptom reported Physical Exam General Appearance: no apparent distress Skin: warm Respiratory: decreased breath sounds Heart: S1S2 Abdomen: soft, bowel sounds present Extremities: pulses present, edema Neurology: alert, oriented, follow commands Musculoskeletal: Other Assessment Assessment IMP EDEMA LE CELLULITIS HYPOKALEMIA-DUE TO SEQUENTIAL TUBULAR BLOCKADE CKD STAGE 2-CR OF 1.3-1.5 LEONOR-RESOLVED PLAN REPLACE K CONT DIURETICS CONT CARLY-I STOP METOLAZONE AND START ALDACTONE ABX WILL FOLLOW NATE KIM MD Jul 18, 2018 11:19
[2018-07-18] MEDS ORDERED: POTASSIUM CHLORIDE 20MEQ 50 ML IV ONE (11:30)
[2018-07-18] MEDS ORDERED: SPIRONOLACTONE 25 MG TABLET PO SCH (12:00)
[2018-07-18] MEDS: POTASSIUM CHLORIDE 10 MEQ in IV NORMAL SALINE 100ML 100 ML IV SCH ×2 (12:15→15:08)
[2018-07-18 15:00] VITALS: BP 97/74
[2018-07-18] MEDS: ANTI-COAG MONITOR BY PHARMACY. MC PRN (15:28)
== END 2018-07-18 17:35 | disposition home or self-care (01) | DRG 871 ==
LOC: ER 15:20 → 5 SOUTH 17:30
PROVIDERS: ADMIT Family Medicine; ATTEND Family Medicine
PROC: 5A09357 Assistance with Respiratory Ventilation, Less than 24 Consecutive Hours, Continuous Positive Airway Pressure (ICD-10-PCS; principal; 2018-07-16)
PROC: 5A09357 Assistance with Respiratory Ventilation, Less than 24 Consecutive Hours, Continuous Positive Airway Pressure (ICD-10-PCS; 2018-07-18)
DX: A41.9 Sepsis, unspecified organism (principal); N17.0 Acute kidney failure with tubular necrosis; L03.115 Cellulitis of right lower limb; I50.32 Chronic diastolic (congestive) heart failure; I13.0 Hypertensive heart and chronic kidney disease with heart failure and stage 1 through stage 4 chronic kidney disease, or unspecified chronic kidney disease; I42.9 Cardiomyopathy, unspecified; Z68.42 Body mass index [BMI] 45.0-49.9, adult; L03.116 Cellulitis of left lower limb; D63.8 Anemia in other chronic diseases classified elsewhere; D69.6 Thrombocytopenia, unspecified; E03.9 Hypothyroidism, unspecified; E11.22 Type 2 diabetes mellitus with diabetic chronic kidney disease; E11.51 Type 2 diabetes mellitus with diabetic peripheral angiopathy without gangrene; E66.01 Morbid (severe) obesity due to excess calories; E78.00 Pure hypercholesterolemia, unspecified; E78.5 Hyperlipidemia, unspecified; E87.6 Hypokalemia; G47.33 Obstructive sleep apnea (adult) (pediatric); I25.10 Atherosclerotic heart disease of native coronary artery without angina pectoris; I48.2 Chronic atrial fibrillation; I87.2 Venous insufficiency (chronic) (peripheral); I89.0 Lymphedema, not elsewhere classified; J44.9 Chronic obstructive pulmonary disease, unspecified; N18.2 Chronic kidney disease, stage 2 (mild); J30.9 Allergic rhinitis, unspecified; M19.90 Unspecified osteoarthritis, unspecified site; M54.5 Low back pain; T50.2X5A Adverse effect of carbonic-anhydrase inhibitors, benzothiadiazides and other diuretics, initial encounter; Y92.89 Other specified places as the place of occurrence of the external cause; E11.42 Type 2 diabetes mellitus with diabetic polyneuropathy; Z60.2 Problems related to living alone; Z79.01 Long term (current) use of anticoagulants; Z79.51 Long term (current) use of inhaled steroids; Z79.82 Long term (current) use of aspirin; Z82.3 Family history of stroke; Z82.49 Family history of ischemic heart disease and other diseases of the circulatory system; Z86.718 Personal history of other venous thrombosis and embolism; Z90.49 Acquired absence of other specified parts of digestive tract; Z95.1 Presence of aortocoronary bypass graft; Z98.1 Arthrodesis status; Z87.891 Personal history of nicotine dependence; Z85.51 Personal history of malignant neoplasm of bladder; Z88.8 Allergy status to other drugs, medicaments and biological substances; Z79.899 Other long term (current) drug therapy; Z79.4 Long term (current) use of insulin
CPT/HCPCS: 36415; 71045; 76770; 80048; 80053; 80061; 80069; 81001; 82962; 83605; 83735; 83880; 84132; 84484; 85025; 85610; 85651; 93005; 93306; 93925; 94640; 96365; 96368; J0690; J2543; J3370; J7040; J7620; J7626; 99285-25

== ENCOUNTER → 2018-07-24 | Outpatient (CLI) | payer MEDICARE, BC ==
[2018-07-18 15:00] VITALS: BP 97/74
[~2018-07-24] MED LIST changes: +CEPH-264 PO; +FURO-69 PO; +MECL25TA3 PO; +METO5TAB4 PO; +POTA20TA4 PO
[2018-07-24 15:31] LABS: CALCIUM 9.4 mg/dL (8.5-10.1); CREATININE 1.4 mg/dL (0.7-1.3); GFR 49.4; POTASSIUM 4.7 mmol/L (3.5-5.1)
== END | disposition home or self-care (01) ==
LOC: LAB 14:40
PROVIDERS: ATTEND Internal Medicine
DX: I48.2 Chronic atrial fibrillation (principal); E87.6 Hypokalemia
CPT/HCPCS: 36415; 80048